=== PATIENT | female | born 1940 | race Caucasian/White ===

== ENCOUNTER 2018-12-02 01:45 | Outpatient (CLI) | payer MEDICARE ==
[2018-12-02 16:12] LABS: #Basophils 0.1 thou/uL (0.0-0.2); #Eosinphils 0.1 thou/uL (0.0-0.7); #Monocytes 0.5 thou/uL (0.11-0.59); #Neutrophils 4.5 thou/uL (1.40-6.50); %Basophils 1.2 % (0.0-1.0); %Eosinophils 1.3 % (0.0-10.0); %Lymphocytes 28.2 % (21.0-51.0); %Monocytes 6.7 % (0.0-10.0); %Neutrophils 62.6 % (42.0-75.0); Hemoglobin 13.3 g/dL (12.0-16.0); Mean Corpuscular HGB CONC 32.8 g/dL (32.0-36.0); Mean Corpuscular Volume 91.6 fL (78.0-98.0); Mean Platelet Volume 8.8 fL (7.4-10.4); Platelet Count 200 thou/uL (130-400); RBC Distribution Width 12.2 % (11.5-14.5); Red Blood Cell (RBC) Count 4.44 mill/uL (4.20-5.40); White Blood Cell (WBC) Count 7.2 thou/uL (4.8-10.8)
[2018-12-02 16:15] LABS: Prothrombin Time 12.9 SEC (12.0-14.7)
[2018-12-02 16:20] LABS: Bacteria/HPF None Seen HPF (None Seen); Hyaline Casts/LPF 0-3 HYALINE CAST LPF (0-3 Hyaline); Pathc Cast-AUWi Flag 0.13 (0-2.49); RBC/HPF 0-3 HPF (0-3); Squamous Epithelial None Seen HPF (0-3); WBC/HPF 0-3 HPF (0-3)
[2018-12-02 16:36] LABS: Anion Gap 12 mmol/L (10-20); BUN (Urea Nitrogen) 16 mg/dL (9.8-20.1); Calc. Creatinine Clearance 0 mL/min (70-130); Calcium 9.8 mg/dL (7.8-10.44); Carbon Dioxide 26 mmol/L (23-31); Chloride 104 mmol/L (98-107); Estimated GFR-MDRD 73; Glucose 132 mg/dL (83-110); Potassium 4.2 mmol/L (3.5-5.1); Sodium 138 mmol/L (136-145)
--- NOTE | 2018-12-03 21:25 | EKG ---
Test Reason : Blood Pressure : / mmHG Vent. Rate : 059 BPM Atrial Rate : 059 BPM P-R Int : 154 ms QRS Dur : 072 ms QT Int : 458 ms P-R-T Axes : 071 054 040 degrees QTc Int : 453 ms Sinus bradycardia with Possible Premature atrial complexes with Abberant conduction Low voltage QRS Nonspecific ST abnormality Abnormal ECG No previous ECGs available Confirmed by Maria Guadalupe WAGNER ([id number]) on 12/03/2018 9:25:14 PM Referred By: BETI Confirmed By:Maria Guadalupe WAGNER
== END 2018-12-02 01:46 | disposition home or self-care (01) ==
LOC: LABBT 01:45
PROVIDERS: ATTEND Orthopaedic Surgery
DX: Z01.818 Encounter for other preprocedural examination (principal); M17.32 Unilateral post-traumatic osteoarthritis, left knee
CPT/HCPCS: 80048; 81015; 85025; 85610; 87081; 93005; 93010

== ENCOUNTER 2018-12-14 05:54 | Inpatient (IN) | payer MEDICARE ==
[2018-12-02 13:26] VITALS: BMI 24.5
[2018-12-14] MEDS ORDERED: Midazolam HCl 2 mg/2 ml Vial ONE (06:07)
[2018-12-14] MEDS ORDERED: Fentanyl 100 MCG/2 ML VIAL ONE ×2 (06:07→08:59)
[2018-12-14] MEDS ORDERED: Tranexamic Acid 1,000 MG/10 ML VIAL ONE (06:28)
[2018-12-14] MEDS ORDERED: Sodium Chloride 0.9% 100 ML ONE (06:28)
[2018-12-14] MEDS ORDERED: traMADol HCl 50 MG TAB PO PRN ×2 (06:36)
[2018-12-14] MEDS ORDERED: Zolpidem Tartrate 5 MG TAB PO PRN ×2 (06:36→06:54)
[2018-12-14] MEDS ORDERED: Promethazine HCl 25 MG/ML VIAL IM PRN ×3 (06:36→08:05)
[2018-12-14] MEDS ORDERED: Ondansetron PF 4 MG/2 ML Vial IVP PRN ×2 (06:36→06:54)
[2018-12-14] MEDS ORDERED: Fentanyl 100 MCG/2 ML VIAL IV PRN (06:37)
[2018-12-14] MEDS ORDERED: Acetaminophen 325 MG TAB PO PRN (06:54)
[2018-12-14] MEDS ORDERED: diphenhydrAMINE 25 MG CAP PO PRN (06:54)
[2018-12-14] MEDS ORDERED: Meloxicam 7.5 MG TAB PO PRN (06:56)
[2018-12-14] MEDS ORDERED: Alendronate Sodium 70 mg Tablet PO SCH (07:00)
[2018-12-14] MEDS ORDERED: Ondansetron HCl/PF 4 MG/2 ML Vial IVP PRN (08:05)
[2018-12-14] MEDS ORDERED: Promethazine HCl 25 MG/ML VIAL SLOW IVP PRN (08:05)
[2018-12-14] MEDS ORDERED: Non-Formulary Item 1 EACH (Liraglutide [Victoza 3-Pak] 1.8 MG) SC SCH (09:00)
--- NOTE | 2018-12-14 09:00 | RAD ---
XR Knee Lt 2 View HISTORY: Total knee replacement COMPARISON: None. FINDINGS: A total knee prosthesis is in good position without evidence of fracture. Vascular calcific ations are noted. IMPRESSION: Satisfactory placement of total knee prosthesis.
--- NOTE | 2018-12-14 10:00 | OP ---
DATE OF PROCEDURE: 12/14/2018 PREOPERATIVE DIAGNOSIS: Degenerative joint disease, left knee. POSTOPERATIVE DIAGNOSIS: Degenerative joint disease, left knee. PROCEDURE PERFORMED: Left total knee arthroplasty using Branch Triathlon 4 femur, 3 tibia, 9 mm, 6 tibial insert, and A29 patella. WIRE STITCHER MACHINE: Liza Monsivais PA-C ESTIMATED BLOOD LOSS: Minimal. SPECIMEN: None. DRAINS: None. COMPLICATIONS: None. TOURNIQUET TIME: 49 minutes. PROCEDURE IN DETAIL: After informed consent was obtained in the preoperative holding area, the patient was taken to the operative suite where general anesthesia was induced. Once adequate level of general anesthesia was obtained, the patient was positioned and a well-padded tourniquet was placed around the left proximal thigh. The left lower extremity was then prepped and draped in the usual sterile fashion. Prior to exsanguination, a time-out was called and all members of the surgical team agreed upon site, surgeon, and patient. The extremity was then exsanguinated and the tourniquet was raised. A midline longitudinal incision was then made directly over the patella extending 2 fingerbreadths above the superior pole of the patella and 2 fingerbreadths inferior to the inferior patellar pole of the patella. Deeper subcutaneous layers were dissected sharply and local bleeding was controlled with Bovie electrocautery. A quad tendon longitudinal split was then made sharply and a median parapatellar arthrotomy was carried out both sharp and with Bovie electrocautery, carried down to 1 fingerbreadth medial to the tibial tubercle. The knee was then placed into flexion and the patella was everted nicely, and a copious fat pad ectomy was performed allowing for greater exposure of the tibia. The computer-assisted distal femoral fiducial was then placed and pinned firmly, and the distal femoral cutting guide was pinned firmly into place. The oscillating saw was then used to remove the appropriate amount of bone. The 4-in-1 cutting block was then placed on the distal femur and the oscillating saw was used to remove the appropriate amount of bone off the anterior, posterior, and chamfer cuts. After completion of bone cuts, the anterior cruciate ligament was resected sharply and the posterior cruciate ligament retractor was placed and the tibia was subluxed for better exposure. Partial meniscectomies were carried out, and the tibial computer-assisted fiducial was pinned, and the cutting guide was placed. Oscillating saw was then used to remove the bone, with Hohmann retractors used to take care and protect the collateral ligaments. After the tibial resection was performed, a laminar registered dental assistant was placed in between the freshened bone cuts. The knee placed at 90 degrees and further bilateral meniscectomies were carried out, and the curved osteotome and curettage were used to remove any excess bone spurs in the posterior compartment. The trial femoral component, tibial baseplate were placed with the appropriate polyethylene trial insert with an appropriate polyethylene spacer and patellar button. The knee was taken through full range of motion with flexion and extension from 0 to 90 degrees and patellar broach squarely in the trochlea without any squinting or subluxation noted. The knee was also stable to varus and valgus stressing at 0, 15, 45, and 90 degrees of flexion. The drawer was negative. All trial components were then removed and the keel punch was used to provide the appropriate defect in the tibia with a mallet. The freshened bone cuts were copiously irrigated with pulsatile lavage of about 1.5 L to remove all excess debris. The freshened bone cuts were then dried with suction and lap sponge. The knee was placed in flexion and retractors were placed to provide access to all bone cuts. Tobramycin-impregnated methyl methacrylate cement was then placed on the freshened bone cuts and implants which were malleted firmly into place. Curettage and [place] elevators were used to remove any excess bone cement. The knee was placed into full extension and the patellar button was placed under compression, and the cement was allowed to cure. Once completed, the components were again taken through full range of motion and copious irrigation of the knee was carried out with another liter of normal saline. All components were inspected fully with full range of motion and varus and valgus stressing. There was no laxity noted and full extension was observed clinically. Primary closure was accomplished with #2 interrupted Vicryl stitch of the arthrotomy defect. This was oversewn with a #2 running Quill barbed stitch. The gravitational platelet system was then injected into the arthrotomy prior to closure. The subcutaneous layer was then closed with a running 0 barbed Monocryl stitch and skin closure accomplished with a running subcuticular 3-0 Monocryl barbed Quill stitch and augmented with cement on the skin. Tourniquet was lowered. Good spontaneous return of distal pulses was noted clinically and a sterile dressing was applied to the incision. The procedure was terminated without any complications. The patient was awakened in the operative suite and the was removed, and the patient was taken to the recovery room in stable condition. Job ID: [id number]
[2018-12-14] MEDS ORDERED: hydrALAZINE 20 MG/ML VIAL SLOW IVP PRN (10:07)
[2018-12-14] MEDS ORDERED: Benzonatate 100 MG CAP PO PRN (10:07)
[2018-12-14] MEDS ORDERED: Bisacodyl 5 MG TAB PO PRN (10:07)
[2018-12-14] MEDS ORDERED: Acetaminophen 500 MG TAB PO PRN (10:07)
[2018-12-14] MEDS ORDERED: Calcium Carbonate 500 MG ChewTAB PO PRN (10:07)
[2018-12-14] MEDS ORDERED: cloNIDine 0.1 MG TAB PO PRN (10:07)
[2018-12-14] MEDS ORDERED: Diabetic Tussin 200 MG/10 ML UDCUP PO PRN (10:07)
[2018-12-14] MEDS ORDERED: Dextrose 5% in Water 1,000 ML IV PRN (10:08)
[2018-12-14] MEDS ORDERED: Dextrose 50% Abboject 50 ML SYRINGE SLOW IVP PRN (10:08)
[2018-12-14] MEDS ORDERED: HumaLOG 300 UNITS/3 ML VIAL SC PRN (10:08)
[2018-12-14] MEDS: CEFAZOLIN 2 GM in Premix Bag 1 BAG IVPB SCH ×2 (10:48→15:50)
[2018-12-14] MEDS: Senokot S 8.6-50 MG TAB PO SCH ×2 (10:49→21:11)
[2018-12-14] MEDS: Multivitamin W/ Minerals 1 TAB PO SCH (10:49)
[2018-12-14] MEDS: Sodium Chloride 0.9% 1,000 ML IV SCH ×2 (10:49→17:53)
[2018-12-14] MEDS: Ferrous Gluconate 324 MG TAB PO SCH ×2 (10:49→21:11)
[2018-12-14] MEDS: Aspirin 81 mg Enteric Coated Tablet PO SCH ×2 (10:49→21:11)
--- NOTE | 2018-12-14 10:51 | PDOC.PN ---
- Subjective Encounter Start Date: 12/14/18 Encounter Start Time: 10:48 Subjective: pt seen & examined.S/P L TKR.feels well.no new complaints -: PCP is Dr. Bautista -: denies any CP/SOB/N/V/abd pain - Objective MAR Reviewed: Yes Vital Signs & Weight: Vital Signs (12 hours) Temp Pulse Resp BP Pulse Ox 12/14/18 10:25 97.3 F L 69 16 136/65 97 Weight Weight 130 lb Additional Labs: Laboratory Tests 12/02/18 12/02/18 14:12 14:12 WBC 7.2 Hgb 13.3 Plt Count 200 Sodium 138 Potassium 4.2 Chloride 104 Carbon Dioxide 26 BUN 16 Creatinine 0.77 Phys Exam - Physical Examination Constitutional: NAD HEENT: PERRLA, moist MMs, sclera anicteric, oral pharynx no lesions Neck: no nodes, no JVD, supple, full ROM Respiratory: no wheezing, no rales, no rhonchi, clear to auscultation bilateral Cardiovascular: RRR, no significant murmur Gastrointestinal: soft, non-tender, no distention, positive bowel sounds Musculoskeletal: no edema, pulses present Neurological: non-focal, normal sensation, moves all 4 limbs Psychiatric: normal affect, A&O x 3 Skin: no rash Dx/Plan (1) DM2 (diabetes mellitus, type 2) Status: Chronic Comment: restart Victoza and Xigduo at home doses. PRN ISS w accuchecks. (2) S/P total knee arthroplasty Code(s): Z96.659 - PRESENCE OF UNSPECIFIED ARTIFICIAL KNEE JOINT Status: Acute Qualifiers: Laterality: left Qualified Code(s): Z96.652 - Presence of left artificial knee joint Comment: oain control and OT,PT per Primary team (3) HLD (hyperlipidemia) Code(s): E78.5 - HYPERLIPIDEMIA, UNSPECIFIED Status: Chronic Comment: restart Atorvastatin - Plan PT/OT, incentive spirometry, out of bed/ambulate, DVT proph w/SCDs ASA BID for DVT prophylaxis -: FeSO4 BID for prevention/Rx of expected postop anemia -: AM labs -: HD stable -: IM team will follow. * . Review of Systems - Review of Systems Constitutional: negative: fever, chills, sweats, weakness, malaise, other ENT: negative: Ear Pain, Ear Discharge, Nose Pain, Nose Discharge, Nose Congestion, Mouth Pain, Mouth Swelling, Throat Pain, Throat Swelling, Other Respiratory: negative: Cough, Dry, Shortness of Breath, Hemoptysis, SOB with Excertion, Pleuritic Pain, Sputum, Wheezing Cardiovascular: negative: chest pain, palpitations, orthopnea, paroxysmal nocturnal dyspnea, edema, light headedness, other Gastrointestinal: negative: Nausea, Vomiting, Abdominal Pain, Diarrhea, Constipation, Melena, Hematochezia, Other Genitourinary: negative: Dysuria, Frequency, Incontinence, Hematuria, Retention , Other Musculoskeletal: negative: Neck Pain, Shoulder Pain, Arm Pain, Back Pain, Hand Pain, Leg Pain, Foot Pain, Other Neurological: negative: Weakness, Numbness, Incoordination, Change in Speech, Confusion, Seizures, Other - Medications/Allergies Allergies/Adverse Reactions: Allergies Allergy/AdvReac Type Severity Reaction Status Date / Time No Known Allergies Allergy Verified 12/02/18 13:25 Medications: Current Medications Acetaminophen (Tylenol) 650 mg PO Q4H PRN PRN Reason: Headache/Fever or Pain Acetaminophen (Tylenol) 1,000 mg PO Q6H PRN PRN Reason: Mild Pain (1-3) Hydrocodone Bitart/Acetaminophen ([place] 10/325) 1 tab PO Q4H PRN PRN Reason: Pain (1-3) Hydrocodone Bitart/Acetaminophen ([place] 10/325) 2 tab PO Q4H PRN PRN Reason: PAIN (4-6) Alendronate Sodium (Fosamax) 70 mg PO Q7D [facility] Last Admin: 12/14/18 10:48 Dose: Not Given Aspirin (Ecotrin) 81 mg PO BID [facility] Last Admin: 12/14/18 10:49 Dose: Not Given Atorvastatin Calcium (Lipitor) 80 mg PO HS [facility] Benzonatate (Tessalon) 100 mg PO Q6H PRN PRN Reason: Cough Bisacodyl (Dulcolax) 10 mg PO DAILYPRN PRN PRN Reason: Constipation Calcium Carbonate (Tums) 1,000 mg PO Q4H PRN PRN Reason: Heartburn or Indigestion Cholecalciferol (Vitamin D3) 0 units PO DAILY [facility] Clonidine (Catapres) 0.1 mg PO Q4H PRN PRN Reason: SBP >160 ____ Dextrose/Water (Dextrose 50%) 25 gm SLOW IVP PRN PRN PRN Reason: Hypoglycemia Diphenhydramine HCl (Benadryl) 25 mg PO Q6H PRN PRN Reason: Itching Fentanyl (Sublimaze) 50 mcg IV Q1H PRN PRN Reason: BREAKTHROUGH Fentanyl (Pacu-Sublimaze) 50 mcg SLOW IVP Q10MIN PRN PRN Reason: Moderate to Severe Pain (6-10) Stop: 12/14/18 11:05 Ferrous Gluconate (Fergon) 324 mg PO BID [facility] Last Admin: 12/14/18 10:49 Dose: Not Given Glucagon (Glucagon) 1 mg IM PRN PRN PRN Reason: Hypoglycemia Guaifenesin (Robitussin Sf) 200 mg PO Q4H PRN PRN Reason: Cough Hydralazine HCl (Apresoline) 10 mg SLOW IVP Q4H PRN PRN Reason: SBP > 180 and HR < 70 Ropivacaine 250 ml/ Device 250 mls @ 0 mls/hr NERVE BLCK INF [facility] Cefazolin Sodium/Dextrose 2 gm (/ Device) 50 mls @ 100 mls/hr IVPB Q8H [facility] Stop: 12/14/18 15:29 Last Admin: 12/14/18 10:48 Dose: Not Given Sodium Chloride (Normal Saline 0.9%) 1,000 mls @ 100 mls/hr IV .Q10H [facility] Last Admin: 12/14/18 10:49 Dose: Not Given Dextrose/Water (D5w) 1,000 mls @ 0 mls/hr IV .Q0M PRN PRN Reason: Hypoglycemia Insulin Human Lispro (Humalog) 0 units SC .MODERATE SLIDING SC PRN PRN Reason: Moderate Correctional Scale Insulin Human Lispro (Humalog) 0 units SC .BEDTIME SLIDING SC PRN PRN Reason: Bedtime Correctional Scale Iron/Minerals/Multivitamins (Theragran M) 1 tab PO DAILY [facility] Last Admin: 12/14/18 10:49 Dose: Not Given Ketorolac Tromethamine (Toradol) 30 mg IVP Q6HR [facility] Stop: 12/16/18 06:01 Meloxicam (Mobic) mg PO DAILY PRN PRN Reason: Pain Non-Formulary Medication (Biotin [Biotin]) 5,000 mcg PO DAILY [facility] Non-Formulary Medication (Dapagliflozin/Metformin Hcl [Xigduo Xr 5 Mg-1,000 Mg Tablet]) 1 tab PO DAILY [facility] Non-Formulary Medication (Liraglutide [Victoza 3-Gume]) 1.8 mg SC DAILY [facility] Non-Formulary Medication (Metformin Hcl [Metformin Hcl]) 1 tab PO [facility] Ondansetron HCl (Zofran) 4 mg IVP Q6H PRN PRN Reason: Nausea/Vomiting Ondansetron HCl (Zofran) 4 mg IVP Q6H PRN PRN Reason: Nausea/Vomiting Ondansetron HCl (Pacu-Zofran) 4 mg IVP ONE PRN PRN Reason: Nausea/Vomiting Stop: 12/14/18 11:05 Promethazine HCl (Phenergan) 12.5 mg IM Q4H PRN PRN Reason: Nausea Promethazine HCl (Phenergan) 12.5 mg IM Q4H PRN PRN Reason: Nausea/Vomiting Promethazine HCl (Pacu-Phenergan) 6.25 mg SLOW IVP ONE PRN PRN Reason: Nausea/Vomiting Stop: 12/14/18 11:05 Promethazine HCl (Pacu-Phenergan) 6.25 mg IM ONE PRN PRN Reason: Nausea/Vomiting Stop: 12/14/18 11:05 Senna/Docusate Sodium (Senokot S) 2 tab PO BID [facility] Last Admin: 12/14/18 10:49 Dose: Not Given Sodium Chloride (Flush - Normal Saline) 10 ml IVF PRN PRN PRN Reason: Saline Flush Tramadol HCl (Ultram) 50 mg PO Q6H PRN PRN Reason: Mild Pain (1-3) Tramadol HCl (Ultram) 100 mg PO Q6H PRN PRN Reason: Moderate Pain 4-6 Zolpidem Tartrate (Ambien) 5 mg PO HSPRN PRN PRN Reason: Insomnia Zolpidem Tartrate (Ambien) 5 mg PO HSPRN PRN PRN Reason: Insomnia
[2018-12-14] MEDS ORDERED: Ropivacaine 0.2% HCl/PF (40 MG/20 ML VIAL) ONE (11:23)
[2018-12-14] MEDS ORDERED: Ropivacaine 0.5% HCl/PF (150 MG/30 ML VIAL) ONE (11:23)
[2018-12-14] MEDS ORDERED: Ondansetron PF 4 MG/2 ML Vial ONE (12:19)
[2018-12-14] MEDS ORDERED: PROPOFOL 200 MG/20 ML VIAL ONE (12:19)
[2018-12-14] MEDS ORDERED: Ketorolac Tromethamine 30 MG/ML VIAL ONE (12:19)
[2018-12-14] MEDS ORDERED: Lidocaine 1% PF 5 ML VIAL ONE (12:19)
[2018-12-14] MEDS: Ketorolac Tromethamine 30 MG/ML VIAL IVP SCH ×2 (12:44→18:08)
[2018-12-14] MEDS: HumaLOG 300 UNITS/3 ML VIAL SC PRN (15:57)
[2018-12-14] MEDS: Atorvastatin Calcium 40 MG TAB PO SCH (21:14)
[2018-12-15] MEDS: Ketorolac Tromethamine 30 MG/ML VIAL IVP SCH ×5 (00:15→23:32)
[2018-12-15] MEDS: Sodium Chloride 0.9% 1,000 ML IV SCH ×3 (02:03→20:59)
[2018-12-15 06:24] LABS: Hemoglobin 10.6 g/dL (12.0-16.0); Mean Corpuscular HGB CONC 33.2 g/dL (32.0-36.0); Mean Corpuscular Hemoglobin 30.1 pg (27.0-31.0); Mean Corpuscular Volume 90.7 fL (78.0-98.0); Mean Platelet Volume 8.4 fL (7.4-10.4); Platelet Count 152 thou/uL (130-400); RBC Distribution Width 11.9 % (11.5-14.5); Red Blood Cell (RBC) Count 3.52 mill/uL (4.20-5.40); White Blood Cell (WBC) Count 7.1 thou/uL (4.8-10.8)
[2018-12-15 06:40] LABS: Anion Gap 11 mmol/L (10-20); BUN (Urea Nitrogen) 18 mg/dL (9.8-20.1); Calc. Creatinine Clearance 64 mL/min (70-130); Calcium 8.1 mg/dL (7.8-10.44); Carbon Dioxide 24 mmol/L (23-31); Chloride 105 mmol/L (98-107); Estimated GFR-MDRD 81; Glucose 143 mg/dL (83-110); Sodium 136 mmol/L (136-145)
[2018-12-15] MEDS: Ropivacaine HCl/PF 250 ML in Premix Bag 1 BAG NERVE BLCK SCH (09:27)
[2018-12-15] MEDS: Multivitamin W/ Minerals 1 TAB PO SCH (09:38)
[2018-12-15] MEDS: Ferrous Gluconate 324 MG TAB PO SCH ×2 (09:38→20:08)
[2018-12-15] MEDS: Aspirin 81 mg Enteric Coated Tablet PO SCH ×2 (09:38→20:08)
[2018-12-15] MEDS: Senokot S 8.6-50 MG TAB PO SCH ×2 (09:39→20:08)
[2018-12-15] MEDS: HumaLOG 300 UNITS/3 ML VIAL SC PRN (15:26)
[2018-12-15] MEDS: HYDROcodone/Acetaminophen 10/325 mg Tablet PO PRN ×2 (15:31→20:08)
[2018-12-15] MEDS: Non-Formulary Item 1 EACH (Biotin [Biotin] 5,000 MCG) PO SCH ×2 (15:36→15:37)
[2018-12-15] MEDS: metFORMIN 500 MG TAB PO SCH (20:08)
[2018-12-15] MEDS: Atorvastatin Calcium 40 MG TAB PO SCH (20:08)
--- NOTE | 2018-12-15 22:46 | PDOC.PN ---
- Subjective Encounter Start Date: 12/15/18 Encounter Start Time: 16:45 Subjective: pt up in chair no complains - Objective Vital Signs & Weight: Vital Signs (12 hours) Temp Pulse Resp BP Pulse Ox 12/15/18 20:00 95 12/15/18 19:46 98.4 F 77 18 114/68 95 12/15/18 15:35 99.1 F 78 16 147/77 H 93 L Weight Admit Weight 130 lb Weight 130 lb I&O: 12/14/18 12/15/18 12/16/18 06:59 06:59 06:59 Intake Total 2202 Output Total 2900 Balance -698 Result Diagrams: 12/15/18 05:50 12/15/18 05:50 Additional Labs: Accuchecks 12/15/18 12/15/18 12/15/18 20:57 15:37 12:43 POC Glucose 216 H 267 H 255 H 12/15/18 05:50 POC Glucose 138 H Phys Exam - Physical Examination Neck: no nodes, no JVD, supple, full ROM Respiratory: no wheezing, no rales, no rhonchi, wheezing present, clear to auscultation bilateral Cardiovascular: RRR, no significant murmur, no rub, gallop, irregular Gastrointestinal: soft, non-tender, no distention, positive bowel sounds Dx/Plan (1) DM2 (diabetes mellitus, type 2) Status: Chronic Comment: restart Victoza and Xigduo at home doses. PRN ISS w accuchecks. (2) S/P total knee arthroplasty Code(s): Z96.659 - PRESENCE OF UNSPECIFIED ARTIFICIAL KNEE JOINT Status: Acute Qualifiers: Laterality: left Qualified Code(s): Z96.652 - Presence of left artificial knee joint Comment: oain control and OT,PT per Primary team (3) HLD (hyperlipidemia) Code(s): E78.5 - HYPERLIPIDEMIA, UNSPECIFIED Status: Chronic Comment: restart Atorvastatin - Plan pt's blood sugars are >200 continue home medication -: and ac/hs humalog, vitals stable -: dvt ppx asa bid * . Review of Systems - Review of Systems Respiratory: negative: Cough, Dry, Shortness of Breath, Hemoptysis, SOB with Excertion, Pleuritic Pain, Sputum, Wheezing Cardiovascular: negative: chest pain, palpitations, orthopnea, paroxysmal nocturnal dyspnea, edema, light headedness, other - Medications/Allergies Allergies/Adverse Reactions: Allergies Allergy/AdvReac Type Severity Reaction Status Date / Time No Known Allergies Allergy Verified 12/02/18 13:25 Medications: Current Medications Acetaminophen (Tylenol) 650 mg PO Q4H PRN PRN Reason: Headache/Fever or Pain Acetaminophen (Tylenol) 1,000 mg PO Q6H PRN PRN Reason: Mild Pain (1-3) Hydrocodone Bitart/Acetaminophen ([place] 10/325) 1 tab PO Q4H PRN PRN Reason: Pain (1-3) Hydrocodone Bitart/Acetaminophen ([place] 10/325) 2 tab PO Q4H PRN PRN Reason: PAIN (4-6) Last Admin: 12/15/18 20:08 Dose: 2 tab Alendronate Sodium (Fosamax) 70 mg PO Q7D [facility] Last Admin: 12/14/18 10:48 Dose: Not Given Aspirin (Ecotrin) 81 mg PO BID [facility] Last Admin: 12/15/18 20:08 Dose: 81 mg Atorvastatin Calcium (Lipitor) 80 mg PO HS [facility] Last Admin: 12/15/18 20:08 Dose: 80 mg Benzonatate (Tessalon) 100 mg PO Q6H PRN PRN Reason: Cough Bisacodyl (Dulcolax) 10 mg PO DAILYPRN PRN PRN Reason: Constipation Calcium Carbonate (Tums) 1,000 mg PO Q4H PRN PRN Reason: Heartburn or Indigestion Cholecalciferol (Vitamin D3) 1,000 units PO DAILY [facility] Last Admin: 12/15/18 09:38 Dose: 1,000 units Clonidine (Catapres) 0.1 mg PO Q4H PRN PRN Reason: SBP >160 ____ Dextrose/Water (Dextrose 50%) 25 gm SLOW IVP PRN PRN PRN Reason: Hypoglycemia Diphenhydramine HCl (Benadryl) 25 mg PO Q6H PRN PRN Reason: Itching Fentanyl (Sublimaze) 50 mcg IV Q1H PRN PRN Reason: BREAKTHROUGH Ferrous Gluconate (Fergon) 324 mg PO BID [facility] Last Admin: 12/15/18 20:08 Dose: 324 mg Glucagon (Glucagon) 1 mg IM PRN PRN PRN Reason: Hypoglycemia Guaifenesin (Robitussin Sf) 200 mg PO Q4H PRN PRN Reason: Cough Hydralazine HCl (Apresoline) 10 mg SLOW IVP Q4H PRN PRN Reason: SBP > 180 and HR < 70 Ropivacaine 250 ml/ Device 250 mls @ 0 mls/hr NERVE BLCK INF [facility] Last Admin: 12/15/18 09:27 Dose: 250 mls Sodium Chloride (Normal Saline 0.9%) 1,000 mls @ 100 mls/hr IV .Q10H [facility] Last Admin: 12/15/18 20:59 Dose: Not Given Dextrose/Water (D5w) 1,000 mls @ 0 mls/hr IV .Q0M PRN PRN Reason: Hypoglycemia Insulin Human Lispro (Humalog) 0 units SC .MODERATE SLIDING SC PRN PRN Reason: Moderate Correctional Scale Last Admin: 12/15/18 15:26 Dose: 6 unit Insulin Human Lispro (Humalog) 0 units SC .BEDTIME SLIDING SC PRN PRN Reason: Bedtime Correctional Scale Iron/Minerals/Multivitamins (Theragran M) 1 tab PO DAILY [facility] Last Admin: 12/15/18 09:38 Dose: 1 tab Ketorolac Tromethamine (Toradol) 30 mg IVP Q6HR [facility] Stop: 12/16/18 06:01 Last Admin: 12/15/18 18:55 Dose: Not Given Meloxicam (Mobic) 7.5 mg PO DAILY PRN PRN Reason: Pain Metformin HCl (Glucophage) 1,000 mg PO HS [facility] Last Admin: 12/15/18 20:08 Dose: 1,000 mg Ondansetron HCl (Zofran) 4 mg IVP Q6H PRN PRN Reason: Nausea/Vomiting Xigduo Xr 5 Mg-1,000 (Mg Tablet) 0 each PO DAILY [facility] Patient Own Medication (Patient's Home Medication) 1.8 each SC DAILY [facility] Promethazine HCl (Phenergan) 12.5 mg IM Q4H PRN PRN Reason: Nausea/Vomiting Senna/Docusate Sodium (Senokot S) 2 tab PO BID [facility] Last Admin: 12/15/18 20:08 Dose: 2 tab Sodium Chloride (Flush - Normal Saline) 10 ml IVF PRN PRN PRN Reason: Saline Flush Last Admin: 12/15/18 06:28 Dose: 10 ml Tramadol HCl (Ultram) 50 mg PO Q6H PRN PRN Reason: Mild Pain (1-3) Tramadol HCl (Ultram) 100 mg PO Q6H PRN PRN Reason: Moderate Pain 4-6 Zolpidem Tartrate (Ambien) 5 mg PO HSPRN PRN PRN Reason: Insomnia
[2018-12-16] MEDS: HYDROcodone/Acetaminophen 10/325 mg Tablet PO PRN ×2 (04:16→21:13)
[2018-12-16] MEDS: Ketorolac Tromethamine 30 MG/ML VIAL IVP SCH (04:40)
[2018-12-16 05:03] LABS: Hemoglobin 10.3 g/dL (12.0-16.0); Mean Corpuscular HGB CONC 33.3 g/dL (32.0-36.0); Mean Corpuscular Hemoglobin 30.4 pg (27.0-31.0); Mean Corpuscular Volume 91.4 fL (78.0-98.0); Platelet Count 144 thou/uL (130-400); Red Blood Cell (RBC) Count 3.37 mill/uL (4.20-5.40); White Blood Cell (WBC) Count 7.4 thou/uL (4.8-10.8)
[2018-12-16] MEDS: Senokot S 8.6-50 MG TAB PO SCH ×2 (09:17→21:12)
[2018-12-16] MEDS: Multivitamin W/ Minerals 1 TAB PO SCH (09:17)
[2018-12-16] MEDS: Aspirin 81 mg Enteric Coated Tablet PO SCH ×2 (09:17→21:13)
[2018-12-16] MEDS: Ferrous Gluconate 324 MG TAB PO SCH ×2 (09:17→21:13)
[2018-12-16] MEDS: XIGDUO PO SCH (09:20)
[2018-12-16] MEDS: PATIENT'S HOME MEDICATION SC SCH (09:21)
[2018-12-16] MEDS: Sodium Chloride 0.9% 1,000 ML IV SCH ×2 (09:27→22:05)
[2018-12-16] MEDS: HumaLOG 300 UNITS/3 ML VIAL SC PRN (12:36)
--- NOTE | 2018-12-16 12:43 | PDOC.PN ---
- Subjective Encounter Start Date: 12/16/18 Encounter Start Time: 09:00 -: old records requested/rev Patient seen and examined. No new complaints. No overnight events - Objective Resuscitation Status - Order Detail: 12/16/18 08:15 Resuscitation Status Routine Resuscitation Status: FULL: Full Resuscitation MAR Reviewed: Yes Vital Signs & Weight: Vital Signs (12 hours) Temp Pulse Resp BP Pulse Ox 12/16/18 12:10 98.3 F 74 20 161/79 H 96 12/16/18 04:36 98.3 F 77 18 129/73 94 L Weight Admit Weight 130 lb Weight 130 lb I&O: 12/15/18 12/16/18 12/17/18 06:59 06:59 06:59 Intake Total 2202 610 Output Total 2900 Balance -698 610 Result Diagrams: 12/16/18 04:32 12/15/18 05:50 Additional Labs: Accuchecks 12/16/18 12/16/18 12/15/18 11:59 06:25 20:57 POC Glucose 176 H 150 H 216 H 12/15/18 12/15/18 15:37 12:43 POC Glucose 267 H 255 H Phys Exam - Physical Examination Constitutional: NAD HEENT: PERRLA, moist MMs, sclera anicteric Neck: no JVD, supple Respiratory: no wheezing, no rales, no rhonchi Cardiovascular: RRR, no significant murmur, no rub Gastrointestinal: soft, non-tender, no distention, positive bowel sounds Musculoskeletal: no edema, pulses present Neurological: non-focal, normal sensation, moves all 4 limbs Lymphatic: no nodes Psychiatric: normal affect, A&O x 3 Skin: no rash, normal turgor Dx/Plan (1) Status post total left knee replacement Code(s): Z96.652 - PRESENCE OF LEFT ARTIFICIAL KNEE JOINT Status: Acute (2) Anemia, normocytic normochromic Code(s): D64.9 - ANEMIA, UNSPECIFIED Status: Chronic (3) DM2 (diabetes mellitus, type 2) Status: Chronic Comment: restart Victoza and Xigduo at home doses. PRN ISS w accuchecks. (4) HLD (hyperlipidemia) Code(s): E78.5 - HYPERLIPIDEMIA, UNSPECIFIED Status: Chronic Comment: restart Atorvastatin (5) Osteoarthritis Code(s): M19.90 - UNSPECIFIED OSTEOARTHRITIS, UNSPECIFIED SITE Status: Chronic (6) Osteoporosis Code(s): M81.0 - AGE-RELATED OSTEOPOROSIS W/O CURRENT PATHOLOGICAL FRACTURE Status: Chronic - Plan cont current plan of care, PT/OT * medication reviewed as below * symptomatic treatment * stable medically * doing well with PT * pain controlled * plan for discharge later today * will sign off. Review of Systems - Review of Systems ENT: negative: Ear Pain, Ear Discharge, Nose Pain, Nose Discharge, Nose Congestion, Mouth Pain, Mouth Swelling, Throat Pain, Throat Swelling, Other Respiratory: negative: Cough, Dry, Shortness of Breath, Hemoptysis, SOB with Excertion, Pleuritic Pain, Sputum, Wheezing Cardiovascular: negative: chest pain, palpitations, orthopnea, paroxysmal nocturnal dyspnea, edema, light headedness, other Gastrointestinal: negative: Nausea, Vomiting, Abdominal Pain, Diarrhea, Constipation, Melena, Hematochezia, Other Genitourinary: negative: Dysuria, Frequency, Incontinence, Hematuria, Retention , Other Musculoskeletal: negative: Neck Pain, Shoulder Pain, Arm Pain, Back Pain, Hand Pain, Leg Pain, Foot Pain, Other Skin: negative: Rash, Lesions, [place], Bruising, Other - Medications/Allergies Allergies/Adverse Reactions: Allergies Allergy/AdvReac Type Severity Reaction Status Date / Time No Known Allergies Allergy Verified 12/02/18 13:25 Medications: Current Medications Acetaminophen (Tylenol) 650 mg PO Q4H PRN PRN Reason: Headache/Fever or Pain Acetaminophen (Tylenol) 1,000 mg PO Q6H PRN PRN Reason: Mild Pain (1-3) Hydrocodone Bitart/Acetaminophen ([place] 10/325) 1 tab PO Q4H PRN PRN Reason: Pain (1-3) Hydrocodone Bitart/Acetaminophen ([place] 10/325) 2 tab PO Q4H PRN PRN Reason: PAIN (4-6) Last Admin: 12/16/18 04:16 Dose: 2 tab Alendronate Sodium (Fosamax) 70 mg PO Q7D REPLACED BY [facility] Last Admin: 12/14/18 10:48 Dose: Not Given Aspirin (Ecotrin) 81 mg PO BID REPLACED BY [facility] Last Admin: 12/16/18 09:17 Dose: 81 mg Atorvastatin Calcium (Lipitor) 80 mg PO HS REPLACED BY [facility] Last Admin: 12/15/18 20:08 Dose: 80 mg Benzonatate (Tessalon) 100 mg PO Q6H PRN PRN Reason: Cough Bisacodyl (Dulcolax) 10 mg PO DAILYPRN PRN PRN Reason: Constipation Calcium Carbonate (Tums) 1,000 mg PO Q4H PRN PRN Reason: Heartburn or Indigestion Cholecalciferol (Vitamin D3) 1,000 units PO DAILY REPLACED BY [facility] Last Admin: 12/16/18 09:17 Dose: 1,000 units Clonidine (Catapres) 0.1 mg PO Q4H PRN PRN Reason: SBP >160 ____ Dextrose/Water (Dextrose 50%) 25 gm SLOW IVP PRN PRN PRN Reason: Hypoglycemia Diphenhydramine HCl (Benadryl) 25 mg PO Q6H PRN PRN Reason: Itching Fentanyl (Sublimaze) 50 mcg IV Q1H PRN PRN Reason: BREAKTHROUGH Ferrous Gluconate (Fergon) 324 mg PO BID REPLACED BY [facility] Last Admin: 12/16/18 09:17 Dose: 324 mg Glucagon (Glucagon) 1 mg IM PRN PRN PRN Reason: Hypoglycemia Guaifenesin (Robitussin Sf) 200 mg PO Q4H PRN PRN Reason: Cough Hydralazine HCl (Apresoline) 10 mg SLOW IVP Q4H PRN PRN Reason: SBP > 180 and HR < 70 Ropivacaine 250 ml/ Device 250 mls @ 0 mls/hr NERVE BLCK INF REPLACED BY [facility] Last Admin: 12/15/18 09:27 Dose: 250 mls Sodium Chloride (Normal Saline 0.9%) 1,000 mls @ 100 mls/hr IV .Q10H REPLACED BY [facility] Last Admin: 12/16/18 09:27 Dose: Not Given Dextrose/Water (D5w) 1,000 mls @ 0 mls/hr IV .Q0M PRN PRN Reason: Hypoglycemia Insulin Human Lispro (Humalog) 0 units SC .MODERATE SLIDING SC PRN PRN Reason: Moderate Correctional Scale Last Admin: 12/16/18 12:36 Dose: 2 unit Insulin Human Lispro (Humalog) 0 units SC .BEDTIME SLIDING SC PRN PRN Reason: Bedtime Correctional Scale Iron/Minerals/Multivitamins (Theragran M) 1 tab PO DAILY REPLACED BY [facility] Last Admin: 12/16/18 09:17 Dose: 1 tab Meloxicam (Mobic) 7.5 mg PO DAILY PRN PRN Reason: Pain Metformin HCl (Glucophage) 1,000 mg PO HS REPLACED BY [facility] Last Admin: 12/15/18 20:08 Dose: 1,000 mg Ondansetron HCl (Zofran) 4 mg IVP Q6H PRN PRN Reason: Nausea/Vomiting Xigduo Xr 5 Mg-1,000 (Mg Tablet) 0 each PO DAILY REPLACED BY [facility] Last Admin: 12/16/18 09:20 Dose: 1 each Patient Own Medication (Patient's Home Medication) 1.8 each SC DAILY REPLACED BY [facility] Last Admin: 12/16/18 09:21 Dose: 1.8 each Promethazine HCl (Phenergan) 12.5 mg IM Q4H PRN PRN Reason: Nausea/Vomiting Senna/Docusate Sodium (Senokot S) 2 tab PO BID REPLACED BY [facility] Last Admin: 12/16/18 09:17 Dose: 2 tab Sodium Chloride (Flush - Normal Saline) 10 ml IVF PRN PRN PRN Reason: Saline Flush Last Admin: 12/15/18 06:28 Dose: 10 ml Tramadol HCl (Ultram) 50 mg PO Q6H PRN PRN Reason: Mild Pain (1-3) Tramadol HCl (Ultram) 100 mg PO Q6H PRN PRN Reason: Moderate Pain 4-6 Zolpidem Tartrate (Ambien) 5 mg PO HSPRN PRN PRN Reason: Insomnia
--- NOTE | 2018-12-16 14:22 | DIS ---
DATE OF ADMISSION: 12/14/2018 DATE OF DISCHARGE: 12/16/2018 PRIMARY CARE PHYSICIAN: Dr. Candelario Peñaloza. DISCHARGE DISPOSITION: Home. PRIMARY DISCHARGE DIAGNOSIS: Left total knee replacement. SECONDARY DISCHARGE DIAGNOSES: Normocytic normochromic anemia, diabetes type 2, dyslipidemia, osteoarthritis, osteoporosis. PRIMARY PROCEDURE/OPERATION: Left total knee replacement. RADIOLOGICAL INVESTIGATION: Knee x-ray. SIGNIFICANT LABORATORY DATA: Hemoglobin 10.3, creatinine 0.70, and electrolytes normal. DISCHARGE MEDICATIONS: 1. Fosamax 70 mg p.o. every week. 2. Lipitor 80 mg p.o. at bedtime. 3. Biotin 5000 mcg p.o. daily. 4. Vitamin D3 1000 units p.o. daily. 5. Dapagliflozin with metformin 1 tablet p.o. daily. 6. Victoza 1.8 mg subcu daily. 7. Mobic 7.5 mg p.o. daily p.r.n. 8. Metformin 1000 mg p.o. at bedtime. 9. Aspirin 81 mg p.o. b.i.d. for DVT prophylaxis as per protocol. 10. Pain medication, we will defer to primary team. CONTRAINDICATION: None. CODE STATUS: Full code. INPATIENT GUEST ROOM ATTENDANT: Dr. Wang was primary. Trace Team was consulted for medical comanagement. TEST RESULT PENDING ON DISCHARGE: None. ALLERGIES: NO KNOWN DRUG ALLERGIES. DISCHARGE PLAN: Posthospital, the patient will follow up with Dr. Wang on January 05, 2019, at 1 p.m. The patient will make appointment with primary care physician in 1 week. HOSPITAL COURSE: A 78-year-old female, who was electively admitted by Dr. Wang on December 14, 2018. The patient underwent left total knee replacement. Post operatively at [facility] [place], Trace Team was consulted for medical comanagement. The patient's medical problems remained stable. The patient was doing very well postoperatively. She did not have any complication while in hospital. We resumed all her home medication while in hospital as well as on discharge. The patient is planned for discharge by primary team. The patient had no block while in the hospital. She was given aspirin for DVT prophylaxis as per protocol. I have seen and examined the patient at bedside today. Please see my progress note from today for further detail. Job ID: [id number]
[2018-12-16] MEDS: Atorvastatin Calcium 40 MG TAB PO SCH (21:12)
[2018-12-16] MEDS: metFORMIN 500 MG TAB PO SCH (21:13)
[2018-12-17 03:18] VITALS: BP 148/72; TEMP 97.7
[2018-12-17] MEDS: Sodium Chloride 0.9% 1,000 ML IV SCH (04:08)
[2018-12-17] MEDS: Ropivacaine HCl/PF 250 ML in Premix Bag 1 BAG NERVE BLCK SCH (05:59)
[2018-12-17] MEDS: Multivitamin W/ Minerals 1 TAB PO SCH (08:37)
[2018-12-17] MEDS: Aspirin 81 mg Enteric Coated Tablet PO SCH (08:37)
[2018-12-17] MEDS: Senokot S 8.6-50 MG TAB PO SCH (08:37)
[2018-12-17] MEDS: Ferrous Gluconate 324 MG TAB PO SCH (08:38)
[2018-12-17] MEDS: XIGDUO PO SCH (08:38)
[2018-12-17] MEDS: PATIENT'S HOME MEDICATION SC SCH (08:39)
--- NOTE | 2018-12-17 11:36 | PDOC.PN ---
- Subjective Encounter Start Date: 12/17/18 Encounter Start Time: 09:30 Patient seen and examined. No new complaints. No overnight events - Objective Resuscitation Status - Order Detail: 12/16/18 08:15 Resuscitation Status Routine Resuscitation Status: FULL: Full Resuscitation MAR Reviewed: Yes Vital Signs & Weight: Vital Signs (12 hours) Temp Pulse Resp BP Pulse Ox 12/17/18 03:17 97.7 F 74 20 148/72 H 96 Weight Admit Weight 130 lb Weight 130 lb I&O: 12/16/18 12/17/18 12/18/18 06:59 06:59 06:59 Intake Total 610 700 Balance 610 700 Result Diagrams: 12/16/18 04:32 12/15/18 05:50 Additional Labs: Accuchecks 12/17/18 12/16/18 12/16/18 06:13 21:11 11:59 POC Glucose 101 177 H 176 H Phys Exam - Physical Examination Constitutional: NAD HEENT: PERRLA, moist MMs, sclera anicteric Neck: no JVD, supple Respiratory: no wheezing, no rales, no rhonchi Cardiovascular: RRR, no significant murmur, no rub Gastrointestinal: soft, non-tender, no distention, positive bowel sounds Musculoskeletal: no edema, pulses present Neurological: non-focal, normal sensation, moves all 4 limbs Lymphatic: no nodes Psychiatric: normal affect, A&O x 3 Skin: no rash, normal turgor Dx/Plan (1) Status post total left knee replacement Code(s): Z96.652 - PRESENCE OF LEFT ARTIFICIAL KNEE JOINT Status: Acute (2) Anemia, normocytic normochromic Code(s): D64.9 - ANEMIA, UNSPECIFIED Status: Chronic (3) DM2 (diabetes mellitus, type 2) Status: Chronic Comment: restart Victoza and Xigduo at home doses. PRN ISS w accuchecks. (4) HLD (hyperlipidemia) Code(s): E78.5 - HYPERLIPIDEMIA, UNSPECIFIED Status: Chronic Comment: restart Atorvastatin (5) Osteoarthritis Code(s): M19.90 - UNSPECIFIED OSTEOARTHRITIS, UNSPECIFIED SITE Status: Chronic (6) Osteoporosis Code(s): M81.0 - AGE-RELATED OSTEOPOROSIS W/O CURRENT PATHOLOGICAL FRACTURE Status: Chronic - Plan cont current plan of care, PT/OT, social insurance analyst * medication reviewed as below * symptomatic treatment * today plan for DC to swing bed * see my discharge summery from yesterday. Review of Systems - Review of Systems ENT: negative: Ear Pain, Ear Discharge, Nose Pain, Nose Discharge, Nose Congestion, Mouth Pain, Mouth Swelling, Throat Pain, Throat Swelling, Other Respiratory: negative: Cough, Dry, Shortness of Breath, Hemoptysis, SOB with Excertion, Pleuritic Pain, Sputum, Wheezing Cardiovascular: negative: chest pain, palpitations, orthopnea, paroxysmal nocturnal dyspnea, edema, light headedness, other Gastrointestinal: negative: Nausea, Vomiting, Abdominal Pain, Diarrhea, Constipation, Melena, Hematochezia, Other Genitourinary: negative: Dysuria, Frequency, Incontinence, Hematuria, Retention , Other Musculoskeletal: negative: Neck Pain, Shoulder Pain, Arm Pain, Back Pain, Hand Pain, Leg Pain, Foot Pain, Other - Medications/Allergies Allergies/Adverse Reactions: Allergies Allergy/AdvReac Type Severity Reaction Status Date / Time No Known Allergies Allergy Verified 12/02/18 13:25 Medications: Current Medications Acetaminophen (Tylenol) 650 mg PO Q4H PRN PRN Reason: Headache/Fever or Pain Acetaminophen (Tylenol) 1,000 mg PO Q6H PRN PRN Reason: Mild Pain (1-3) Hydrocodone Bitart/Acetaminophen ([place] 10/325) 1 tab PO Q4H PRN PRN Reason: Pain (1-3) Last Admin: 12/16/18 21:13 Dose: 1 tab Hydrocodone Bitart/Acetaminophen ([place] 10/325) 2 tab PO Q4H PRN PRN Reason: PAIN (4-6) Last Admin: 12/16/18 04:16 Dose: 2 tab Alendronate Sodium (Fosamax) 70 mg PO Q7D [facility] Last Admin: 12/14/18 10:48 Dose: Not Given Aspirin (Ecotrin) 81 mg PO BID [facility] Last Admin: 12/17/18 08:37 Dose: 81 mg Atorvastatin Calcium (Lipitor) 80 mg PO HS [facility] Last Admin: 12/16/18 21:12 Dose: 80 mg Benzonatate (Tessalon) 100 mg PO Q6H PRN PRN Reason: Cough Bisacodyl (Dulcolax) 10 mg PO DAILYPRN PRN PRN Reason: Constipation Calcium Carbonate (Tums) 1,000 mg PO Q4H PRN PRN Reason: Heartburn or Indigestion Cholecalciferol (Vitamin D3) 1,000 units PO DAILY [facility] Last Admin: 12/17/18 08:37 Dose: 1,000 units Clonidine (Catapres) 0.1 mg PO Q4H PRN PRN Reason: SBP >160 ____ Dextrose/Water (Dextrose 50%) 25 gm SLOW IVP PRN PRN PRN Reason: Hypoglycemia Diphenhydramine HCl (Benadryl) 25 mg PO Q6H PRN PRN Reason: Itching Fentanyl (Sublimaze) 50 mcg IV Q1H PRN PRN Reason: BREAKTHROUGH Ferrous Gluconate (Fergon) 324 mg PO BID [facility] Last Admin: 12/17/18 08:38 Dose: 324 mg Glucagon (Glucagon) 1 mg IM PRN PRN PRN Reason: Hypoglycemia Guaifenesin (Robitussin Sf) 200 mg PO Q4H PRN PRN Reason: Cough Hydralazine HCl (Apresoline) 10 mg SLOW IVP Q4H PRN PRN Reason: SBP > 180 and HR < 70 Ropivacaine 250 ml/ Device 250 mls @ 0 mls/hr NERVE BLCK INF [facility] Last Admin: 12/17/18 05:59 Dose: 250 mls Sodium Chloride (Normal Saline 0.9%) 1,000 mls @ 100 mls/hr IV .Q10H [facility] Last Admin: 12/17/18 04:08 Dose: Not Given Dextrose/Water (D5w) 1,000 mls @ 0 mls/hr IV .Q0M PRN PRN Reason: Hypoglycemia Insulin Human Lispro (Humalog) 0 units SC .MODERATE SLIDING SC PRN PRN Reason: Moderate Correctional Scale Last Admin: 12/16/18 12:36 Dose: 2 unit Insulin Human Lispro (Humalog) 0 units SC .BEDTIME SLIDING SC PRN PRN Reason: Bedtime Correctional Scale Iron/Minerals/Multivitamins (Theragran M) 1 tab PO DAILY [facility] Last Admin: 12/17/18 08:37 Dose: 1 tab Meloxicam (Mobic) 7.5 mg PO DAILY PRN PRN Reason: Pain Metformin HCl (Glucophage) 1,000 mg PO HS [facility] Last Admin: 12/16/18 21:13 Dose: 1,000 mg Ondansetron HCl (Zofran) 4 mg IVP Q6H PRN PRN Reason: Nausea/Vomiting Xigduo Xr 5 Mg-1,000 (Mg Tablet) 0 each PO DAILY [facility] Last Admin: 12/17/18 08:38 Dose: 1 each Patient Own Medication (Patient's Home Medication) 1.8 each SC DAILY [facility] Last Admin: 12/17/18 08:39 Dose: 1.8 each Promethazine HCl (Phenergan) 12.5 mg IM Q4H PRN PRN Reason: Nausea/Vomiting Senna/Docusate Sodium (Senokot S) 2 tab PO BID [facility] Last Admin: 12/17/18 08:37 Dose: 2 tab Sodium Chloride (Flush - Normal Saline) 10 ml IVF PRN PRN PRN Reason: Saline Flush Last Admin: 12/15/18 06:28 Dose: 10 ml Tramadol HCl (Ultram) 50 mg PO Q6H PRN PRN Reason: Mild Pain (1-3) Tramadol HCl (Ultram) 100 mg PO Q6H PRN PRN Reason: Moderate Pain 4-6 Zolpidem Tartrate (Ambien) 5 mg PO HSPRN PRN PRN Reason: Insomnia
--- NOTE | 2018-12-17 14:53 | DIS ---
DATE OF ADMISSION: 12/14/2018 DATE OF DISCHARGE: 12/17/2018 Please see my discharge summary dictated yesterday for more details. This patient was planned for discharge to swing bed and that is why she stayed overnight. Today, she has arrangement for [facility] [facility]. The patient is seen and examined at bedside today. Please see my progress note from today for further detail. I have done discharge medication reconciliation. Final pain medication will defer to primary team. She will continue all her previous medications. She is given aspirin for DVT prophylaxis, ferrous sulfate for anemia, and Humalog insulin as per sliding scale. Rest of medication as per previous. Job ID: [id number]
[2018-12-17] MEDS: HYDROcodone/Acetaminophen 10/325 mg Tablet PO PRN (15:10)
== END 2018-12-17 15:11 | DRG 470 ==
LOC: SDC 05:54 → SJJU 10:45
PROVIDERS: ADMIT Orthopaedic Surgery; ATTEND Orthopaedic Surgery
PROC: 0SRD0J9 Replacement of Left Knee Joint with Synthetic Substitute, Cemented, Open Approach (ICD-10-PCS; principal; 2018-12-14)
DX: M17.12 Unilateral primary osteoarthritis, left knee (principal); E78.5 Hyperlipidemia, unspecified; M81.0 Age-related osteoporosis without current pathological fracture; E11.9 Type 2 diabetes mellitus without complications; D64.9 Anemia, unspecified; Z90.710 Acquired absence of both cervix and uterus; Z98.42 Cataract extraction status, left eye
CPT/HCPCS: 36415; 36416; 80048; 85027; C1713; C1776; J0690; J1885; J2001; J2250; J2405; J2704; J2795; J3010; J3370; J3490

== ENCOUNTER 2018-12-22 15:38 | Inpatient (IN) | payer MEDICARE ==
[2018-12-22] MEDS ORDERED: Enoxaparin Sodium 60 MG/0.6 ML SYRINGE ONE (16:34)
[2018-12-22 16:44] LABS: #Basophils 0.1 thou/uL (0.0-0.2); #Eosinphils 0.1 thou/uL (0.0-0.7); #Lymphocytes 1.3 thou/uL (1.20-3.40); #Monocytes 0.7 thou/uL (0.11-0.59); #Neutrophils 7.3 thou/uL (1.40-6.50); %Basophils 0.7 % (0.0-1.0); %Eosinophils 0.6 % (0.0-10.0); %Neutrophils 77.6 % (42.0-75.0); Hemoglobin 12.4 g/dL (12.0-16.0); Mean Corpuscular HGB CONC 33.9 g/dL (32.0-36.0); Mean Corpuscular Hemoglobin 31.4 pg (27.0-31.0); Mean Corpuscular Volume 92.6 fL (78.0-98.0); Mean Platelet Volume 8.4 fL (7.4-10.4); Platelet Count 217 thou/uL (130-400); RBC Distribution Width 12.4 % (11.5-14.5); Red Blood Cell (RBC) Count 3.94 mill/uL (4.20-5.40); White Blood Cell (WBC) Count 9.4 thou/uL (4.8-10.8)
[2018-12-22 16:50] LABS: PTT 23.6 SEC (22.9-36.1); Prothrombin Time 12.7 SEC (12.0-14.7)
--- NOTE | 2018-12-22 16:50 | PDOC.FPRHP ---
- History of Present Illness Chief Complaint: PE Transfer History of Present Illness: 78 yo female presents via transfer from [place]. Patient had total knee arthroplasty by Dr. Crandall on December 14. Patient was in swingbed rehab. This AM patient became disoriented, SOB, and diaphoretic. Patient was given supplemental O2 and had a d-dimer drawn. It was measured at 5 and underwent CTA that showed bilateral PE. Since being on O2 patient reports feeling much better. She denies any personal or family history of blood clotting disorder. No other complaints. ED Course: 1 mg/kg Lovenox - Allergies/Adverse Reactions Allergies Allergy/AdvReac Type Severity Reaction Status Date / Time No Known Allergies Allergy Verified 12/02/18 13:25 - Home Medications Medication Instructions Recorded Confirmed Type Alendronate Sodium 70 mg PO Q7D 12/02/18 12/17/18 History Atorvastatin Calcium 80 mg PO HS 12/02/18 12/17/18 History Biotin 5,000 mcg PO DAILY 12/02/18 12/17/18 History Cholecalciferol (Vitamin D3) 1,000 unit PO DAILY 12/02/18 12/17/18 History [Vitamin D3] Dapagliflozin/Metformin HCl 1 tab PO DAILY 12/02/18 12/17/18 History [Xigduo Xr 5 mg-1,000 mg Tablet] Liraglutide [Victoza 3-Gume] 1.8 mg SC DAILY 12/02/18 12/17/18 History Meloxicam [Mobic] 1 tab PO DAILY PRN 12/02/18 12/17/18 History metFORMIN HCl [Metformin HCl] 1 tab PO HS 12/02/18 12/17/18 History Aspirin [Ecotrin Low Strength] 81 mg PO BID #60 tab 12/17/18 12/17/18 Rx Ferrous Gluconate [Fergon] 324 mg PO BID #60 tab 12/17/18 12/17/18 Rx HumaLOG [HumaLOG Vial] 0 unit SC TID-WM PRN #1 vial 12/17/18 12/17/18 Rx - History PMHx: DM2, HLD, HTN PSHx: L total knee arthroplasty 2019, Left eye replacement, Hysterectomy FHx: None of note Social: Denies alcohol, tobacco, or drug use. Lives at home independently - Review of Systems General: denies: fever/chills ENT: denies: nasal congestion Respiratory: reports: shortness of breath. denies: cough Cardiovascular: denies: chest pain Gastrointestinal: denies: nausea, vomiting, diarrhea Skin: denies: rashes, lesions Musculoskeletal: reports: pain, tenderness, swelling Neurological: denies: numbness, syncope Psychological: denies: anxiety, depression - Vital signs BP: 128/70 HR: 108 RR: 20 Tmax: 98.0 Pox: 95% on 2L Wt: 61 kg - Physical Exam Constitutional: NAD, awake, alert and oriented HEENT: normocephalic and atraumatic, PERRLA, TM's clear and intact, MMM -HEENT: left eye prosthesis Neck: supple, FROM Heart: RRR, normal S1/S2 Lungs: CTAB, no respiratory distress, no wheezing Abdomen: soft, non-tender, bowel sounds present, no masses/distention Musculoskeletal: normal structure, normal tone -Musculoskeletal: Left knee with post op bandage in place. Clean dry and intact Neurological: no focal deficit, CN II-XII intact Skin: no rash/lesions, good turgor, capillary refill <2 seconds Heme/Lymphatic: no unusual bruising or bleeding Psychiatric: normal mood and affect, good judgment and insight, intact recent and remote memory FMR H&P: Results - Labs Result Diagrams: 12/22/18 16:32 - EKG Interpretation EK lead EKG shows, sinus tachycardia, Rate (beats per minute): 102, Conduction normal, ST segments normal, T waves normal, Loraine normal, Clinical impression: Normal EKG, - Radiology Interpretation CT scan - chest Status: image reviewed by me (Extensive bilateral PE) Chest x-ray Status: image reviewed by me (NAD), report reviewed by me FMR H&P: A/P - Problem List (1) Pulmonary embolism Current Visit: Yes Status: Acute Code(s): I26.99 - OTHER PULMONARY EMBOLISM WITHOUT ACUTE COR PULMONALE (2) Status post total left knee replacement Current Visit: No Status: Acute Code(s): Z96.652 - PRESENCE OF LEFT ARTIFICIAL KNEE JOINT (3) DM2 (diabetes mellitus, type 2) Current Visit: No Status: Chronic Comment: restart Victoza and Xigduo at home doses. PRN ISS w accuchecks. (4) HLD (hyperlipidemia) Current Visit: No Status: Chronic Code(s): E78.5 - HYPERLIPIDEMIA, UNSPECIFIED Comment: restart Atorvastatin - Plan 1. Bilateral PE - Therapeutic lovenox - Will transition to PO anticoagulation - ECHO pending - Lower extremity Doppler pending as well - O2 supplementation as needed 2. s/p LTKR - Routine post op care - PT/OT - Likely will need rehab placement vs SNF on discharge 3. Elevated Troponin/BNP - ECHO pending - Likely secondary to PE - Will repeat troponin if symptomatic 4. DM2 - accuchecks - Continue home meds 5. HLD - Continue home meds Disposition: Stable, will admit to Telemetry services
[2018-12-22] MEDS ORDERED: Meloxicam 7.5 MG TAB PO PRN (17:19)
[2018-12-22 17:29] LABS: CKMB 2.8 ng/mL (0-6.6)
[2018-12-22] MEDS ORDERED: Alendronate Sodium 70 mg Tablet PO SCH (17:30)
[2018-12-22 17:37] LABS: Chloride 99 mmol/L (98-107); Potassium 4.5 mmol/L (3.5-5.1); Sodium 136 mmol/L (136-145)
[2018-12-22 17:38] LABS: Albumin 3.8 g/dL (3.4-4.8); Calcium 9.4 mg/dL (7.8-10.44)
[2018-12-22 17:40] LABS: Bilirubin, Total 0.5 mg/dL (0.2-1.2); Globulin 2.8 g/dL (2.4-3.5); Glucose 148 mg/dL (83-110); Protein, Total 6.6 g/dL (6.0-8.3)
[2018-12-22 17:42] LABS: Anion Gap 18 mmol/L (10-20); Carbon Dioxide 24 mmol/L (23-31)
[2018-12-22 17:43] LABS: AST (SGOT) 31 U/L (5-34); Alkaline Phosphatase 91 U/L (40-150)
[2018-12-22 17:44] LABS: BUN (Urea Nitrogen) 12 mg/dL (9.8-20.1); Calc. Creatinine Clearance 0 mL/min (70-130); Estimated GFR-MDRD 78
[2018-12-22 17:46] LABS: ALT (SGPT) 20 U/L (8-55)
[2018-12-22] MEDS ORDERED: Ondansetron PF 4 MG/2 ML Vial IVP PRN (18:03)
[2018-12-22] MEDS ORDERED: Ondansetron ODT 4 MG TAB PO PRN (18:03)
[2018-12-22] MEDS ORDERED: Nitroglycerin 0.4 MG TAB (25 Tab Bottle) PO PRN (18:07)
[2018-12-22] MEDS ORDERED: Dextrose 50% Abboject 50 ML SYRINGE SLOW IVP PRN (18:07)
[2018-12-22] MEDS ORDERED: Dextrose 5% in Water 1,000 ML IV PRN (18:07)
[2018-12-22] MEDS ORDERED: Non-Formulary Item 1 EACH (Atorvastatin Calcium [Atorvastatin Calcium] 80 MG) PO SCH (21:00)
[2018-12-22] MEDS ORDERED: Aspirin 81 mg Enteric Coated Tablet PO SCH (21:00)
[2018-12-22] MEDS ORDERED: Ferrous Gluconate 324 MG TAB PO SCH (21:00)
[2018-12-22] MEDS ORDERED: Non-Formulary Item 1 EACH (Metformin Hcl [Metformin Hcl] 1 TAB) PO SCH (21:00)
[2018-12-23 01:00] VITALS: BMI 23.8
[2018-12-23 05:08] LABS: Hemoglobin 10.7 g/dL (12.0-16.0); Platelet Count 264 thou/uL (130-400)
[2018-12-23 05:29] LABS: Anion Gap 14 mmol/L (10-20); BUN (Urea Nitrogen) 12 mg/dL (9.8-20.1); Calc. Creatinine Clearance 66 mL/min (70-130); Calcium 8.6 mg/dL (7.8-10.44); Carbon Dioxide 27 mmol/L (23-31); Chloride 99 mmol/L (98-107); Estimated GFR-MDRD 84; Glucose 115 mg/dL (83-110); Potassium 3.9 mmol/L (3.5-5.1); Sodium 136 mmol/L (136-145)
[2018-12-23 05:54] LABS: CKMB 2.2 ng/mL (0-6.6)
[2018-12-23] MEDS: Enoxaparin Sodium 60 MG/0.6 ML SYRINGE SC SCH ×2 (05:54→17:21)
--- NOTE | 2018-12-23 07:23 | ULT ---
ULTRASOUND WITH DOPPLER DUPLEX VENOUS LOWER EXTREMITY BILATERAL: CPT: 22270 ICD-10-PCS: B54D INDICATION: History of pulmonary emboli, edema, recent surgery. TECHNIQUE: Color flow Doppler, spectral waveform analysis of pulsed Doppler, and allen-scale imaging with froy obi and augmentation, were used to evaluate the bilateral common femoral, femoral, popliteal, data warehouse developer ior tibial, and superficial femoral, veins; and the proximal portions of the profunda femoral and gre ater saphenous, veins. FINDINGS: Within the right lower extremity, there is diminished flow and reduced compressibility involving the peroneal vein. Within the left lower extremity, multifocal reduction of flow with diminished compressibility is demo nstrated, which involves the femoral vein at its proximal region, as well as below the level of the l eft knee at the peroneal vein. IMPRESSION: 1. Bilateral deep venous thrombosis. 2. Patient has documented extensive bilateral pulmonary emboli. Findings were conveyed by the raise driller to the patient's nurse, Lesly, at the time of the exam. CODE CR. POS: [id number]
--- NOTE | 2018-12-23 08:13 | HP ---
PRIMARY CARE PHYSICIAN: Dr. Sorenson. The patient was seen and examined on 22 December 2018. CHIEF COMPLAINT: Shortness of breath with lightheadedness at [facility]. HISTORY OF PRESENT ILLNESS: The patient is a 78-year-old female with recent left total knee arthroplasty, diabetes mellitus type 2, hypertension, hyperlipidemia , and degenerative joint disease, presented to the emergency room from [facility] with above complaints. The patient underwent left total knee arthroplasty on 14 December 2018. She did not have any complications after the procedure. She was discharged to the [facility]. Around 1:00 p.m., she had lightheadedness along with diaphoresis, nausea, and shortness of breath. Her O2 saturation was 83% at that time, that improved with O2 supplementation. Due to elevated D-dimer, she underwent a CTA and that was found to have bilateral pulmonary embolism. She was sent to this hospital for admission. At this time, she does not have any shortness of breath. She appears comfortable. No chest pain, diaphoresis, nausea reported while in the emergency room. PAST MEDICAL HISTORY: 1. Diabetes mellitus type 2. 2. Hypertension. 3. Degenerative joint disease. 4. Hyperlipidemia. 5. Osteoporosis. PAST SURGICAL HISTORY: 1. Recent left total knee arthroplasty. 2. 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 3. Hysterectomy. ALLERGIES: NO KNOWN DRUG ALLERGIES. CURRENT HOME MEDICATIONS: 1. Zofran as needed. 2. Tylenol as needed. 3. Lipitor 80 mg at bedtime. 4. Vitamin D3 1000 units daily. 5. Metformin with dapagliflozin 1000/5 daily. 6. Glucagon as needed. 7. Honeydew as needed. 8. Victoza 1.8 mg daily. 9. Mobic daily. 10. Metformin 1000 mg at bedtime. 11. Aspirin 81 mg b.i.d. 12. Ferrous sulfate 325 mg b.i.d. SOCIAL HISTORY: No current use of tobacco, alcohol, or drug use. She currently is at long-term facility due to recent left total knee arthroplasty. She makes her own decision with the help of her family. FAMILY HISTORY: Negative for premature coronary artery disease. Father with diabetes and cancer. REVIEW OF SYSTEMS: All other review of systems were reviewed and were found. PHYSICAL EXAMINATION: VITAL SIGNS: Temperature 98, respirations 20, pulse 108, blood pressure 128/70 , O2 saturation 95% on 2 L nasal cannula. GENERAL: A 78-year-old female, in no apparent distress, feels better with oxygen supplementation. HEENT: Head, atraumatic and normocephalic. Sclerae anicteric. Moist mucous membranes. No oral lesion. NECK: Supple. No JVD appreciated. No carotid bruit. LUNGS: Clear to auscultation bilaterally with mild accessory muscle use. No rhonchi or wheezing. HEART: S1, S2 present. Regular rate and rhythm. Tachycardic. No rubs or gallops. ABDOMEN: Soft, nontender. Bowel sounds present. EXTREMITIES: There is swelling in the left lower extremity compared to the right. No calf tenderness. Well-healing incision from the recent left total knee surgery. SKIN: Warm and dry. LYMPH NODES: No palpable lymph nodes in the neck. PERIPHERAL VASCULAR: Radial pulses palpable bilaterally. MUSCULOSKELETAL: No joint swelling, tenderness. LABORATORY FINDINGS: WBC 9.4, hemoglobin 12.4, hematocrit 36.5, platelet 217. PT/INR and PTT normal range. Chemistry showed sodium 136, potassium 4.5, chloride 99, bicarb 24, BUN 12, creatinine 0.73, glucose of 148. Troponin of 0.445. BNP 219. CT angiogram of the chest by my review showed extensive bilateral pulmonary embolism both in the main pulmonary arteries with emboli extending inferiorly into the interlobar arteries bilaterally and extending into bilateral lower lobe pulmonary arteries. There were emboli seen extending into the upper lobe pulmonary arteries as well as right middle lobe arteries. Venous Doppler of bilateral lower extremity was consistent with bilateral DVT. IMPRESSION: 1. Acute hypoxic respiratory failure secondary to bilateral extensive pulmonary embolism with bilateral lower extremity DVT. 2. Recent left total knee arthroplasty. 3. Diabetes mellitus type 2. 4. Hypertension. 5. Elevated troponin secondary to demand ischemia/type 2 myocardial infarction. 6. Chronic kidney disease, stage 2. 7. Physical deconditioning. 8. Degenerative joint disease. 9. Osteoporosis. PLAN: The patient will be monitored on the telemetry unit. We will continue Lovenox 1 mg/kg twice a day. Echocardiogram will be obtained. Her BNP is slightly elevated at 119.5. Bedrest with bedside commode for now. We will add low-dose PPI. She denies any history of gastrointestinal bleeding. She understands the risks associated with anticoagulation. We will monitor labs on a daily basis. Repeat troponin in a.m. Insulin sliding scale. Hold metformin for now due to contrast exposure. We will resume Lipitor. Plan was discussed with the patient in detail. She stated understanding. Job ID: [id number] MTDD
[2018-12-23] MEDS ORDERED: DAPAGLIFLOZIN PO SCH (09:00)
[2018-12-23] MEDS ORDERED: Non-Formulary Item 1 EACH (Biotin [Biotin] 5,000 MCG) PO SCH (09:00)
[2018-12-23] MEDS ORDERED: [UNRECOGNIZED DRUG - OTHER] PO SCH (09:00)
[2018-12-23] MEDS ORDERED: Non-Formulary Item 1 EACH (Liraglutide [Victoza 3-Pak] 1.8 MG) SC SCH (09:00)
[2018-12-23] MEDS ORDERED: METFORMIN HCL PO SCH (09:00)
[2018-12-23] MEDS: Calcium Carbonate + Vit D 1 TAB PO SCH ×2 (09:39→17:21)
[2018-12-23] MEDS: Multivit, Therapeutic 1 TAB PO SCH (09:39)
[2018-12-23] MEDS: Aspirin 81 mg Enteric Coated Tablet PO SCH (09:39)
[2018-12-23] MEDS: Insulin Regular 300 UNITS/3 ML VIAL SC PRN ×3 (13:19→21:16)
[2018-12-23] MEDS ORDERED: Polyethylene Glycol 3350 17 GM Packet PO PRN (13:54)
--- NOTE | 2018-12-23 15:50 | PRG ---
DATE OF SERVICE: 12/23/2018 SUMMARY: A 78-year-old female with recent left total knee arthroplasty, presented from swing bed with shortness of breath. She was diagnosed with bilateral pulmonary embolism. Shortness of breath is improving. She denies any fever or chills. No cough or chest pain reported. No syncope. REVIEW OF SYSTEMS: All other review of systems was reviewed and was found negative. CURRENT MEDICATIONS: Reviewed. The patient is on 1 mg/kg Lovenox twice a day. She is also on 81 mg aspirin, Lipitor as well as Victoza. Telemetry monitoring by my review showed sinus rhythm. PHYSICAL EXAMINATION: VITAL SIGNS: Temperature 97.3, pulse rate of 93, respirations 16, O2 saturation of 93% on 2 L nasal cannula, blood pressure 117/57, and weight of 130 pounds. GENERAL: A 78-year-old female in no apparent distress. HEENT: Head, atraumatic and normocephalic. Sclerae anicteric. Moist mucous membrane. No oral lesion. NECK: Supple. No JVD. No carotid bruit. LUNGS: Clear to auscultation bilaterally. No wheezing, rales, or rhonchi. No accessory muscle use. HEART: S1 and S2 present. Regular rate and rhythm. No rubs or gallops appreciated. ABDOMEN: Soft and nontender. Bowel sounds present. No rebound or guarding. EXTREMITIES: There is left lower extremity swelling more than the right. No calf tenderness. PSYCHIATRY: Normal affect. Alert, awake, and oriented x3. NEUROLOGIC: Grossly nonfocal. Moves all 4 extremities. LABORATORY FINDINGS: Hemoglobin 10.7, hematocrit 32.3. BUN 12, creatinine 0.68. Troponin 0.286 with CK-MB 2.2. BNP was 119.5. Bilateral lower extremity Doppler by my review was positive for bilateral DVT. CT angiogram of the chest by my review was consistent with bilateral pulmonary embolism. IMPRESSION: 1. Acute hypoxic respiratory failure secondary to bilateral extensive pulmonary embolism with bilateral lower extremity deep venous thrombosis. 2. Diabetes mellitus type 2. 3. Hypertension. 4. Type 2 myocardial infarction. 5. Recent left total knee arthroplasty. 6. Physical deconditioning. 7. Degenerative joint disease. 8. Osteoporosis. 9. Chronic kidney disease, stage 2. 10. Anemia, probably chronic. PLAN: Lovenox 1 mg/kg will be continued. Await echocardiogram. We will increase activity to bathroom privileges for now. Continue PPIs. Add Senokot-S due to constipation. The patient understands the risk associated with anticoagulation. Metformin is currently on hold. We will resume Victoza. Code status was readdressed. She is requesting chemical code. Plan of care was discussed with the patient in detail. She stated understanding. Job ID: [id number]
[2018-12-23 17:42] LABS: Hemoglobin 11.4 g/dL (12.0-16.0); Platelet Count 290 thou/uL (130-400)
[2018-12-23] MEDS: Acetaminophen 325 MG TAB PO PRN (19:54)
[2018-12-23] MEDS: Atorvastatin Calcium 40 MG TAB PO SCH (20:20)
[2018-12-23] MEDS: Senokot S 8.6-50 MG TAB PO SCH (20:20)
[2018-12-24] MEDS: Enoxaparin Sodium 60 MG/0.6 ML SYRINGE SC SCH ×2 (05:50→16:12)
[2018-12-24] MEDS: Multivit, Therapeutic 1 TAB PO SCH (10:04)
[2018-12-24] MEDS: Calcium Carbonate + Vit D 1 TAB PO SCH ×2 (10:04→16:12)
[2018-12-24] MEDS: Senokot S 8.6-50 MG TAB PO SCH ×2 (10:04→21:01)
[2018-12-24] MEDS: Aspirin 81 mg Enteric Coated Tablet PO SCH (10:04)
[2018-12-24] MEDS: (Liraglutide [Victoza 3-Pak] 1.8 MG) SC SCH ×2 (10:13→10:14)
[2018-12-24] MEDS: Insulin Regular 300 UNITS/3 ML VIAL SC PRN ×2 (11:59→22:38)
--- NOTE | 2018-12-24 12:13 | PRG ---
DATE OF SERVICE: 12/24/2018 SUBJECTIVE: A 78-year-old female with recent left total knee arthroplasty, presented 2 days ago with shortness of breath. A workup was consistent with bilateral pulmonary embolism with bilateral lower extremity DVT. She continues to be on oxygen supplementation. Symptomatically, she feels better. She denies any chest pain or palpitations. REVIEW OF SYSTEMS: No nausea, vomiting, diaphoresis, focal deficit, or chest pain. PHYSICAL EXAMINATION: VITAL SIGNS: Temperature 98.3, pulse 87, blood pressure 131/59, pulse rate of 19, and O2 saturation 96% on 2 L nasal cannula. GENERAL: A 78-year-old female, in no apparent distress. LUNGS: Showed diminished air entry at bilateral bases. No wheezing, rales, or rhonchi. HEART: S1 and S2 present. Regular rate and rhythm. No rubs or gallops. ABDOMEN: Soft. Bowel sounds present. EXTREMITIES: Left lower extremity edema persist. No calf tenderness. NEUROLOGIC: Grossly nonfocal. CODE STATUS: Chemical code. LABORATORY DATA: Chemistry showed creatinine of 0.65 with GFR of 89. Telemetry monitoring by my review showed sinus rhythm. IMPRESSION: 1. Acute hypoxic respiratory failure secondary to bilateral extensive pulmonary embolism. 2. Bilateral lower extremity deep venous thrombosis. 3. Diabetes mellitus, type 2. 4. Hypertension. 5. Recent left total knee arthroplasty. 6. Elevated troponin secondary to demand ischemia/type 2 myocardial infarction. 7. Physical deconditioning. 8. Degenerative joint disease. 9. Osteoporosis. 10. Chronic anemia. 11. Chronic kidney disease, stage 2. 12. Chronic diastolic dysfunction. PLAN: We will continue Lovenox. We will consult Pulmonary, Dr. Aragon. We will continue current home medications including Victoza. We will continue aspirin for now due to elevated troponin. Troponin on admission was 0.445. Echocardiogram showed ejection fraction 60% to 65% with diastolic dysfunction and moderately enlarged right ventricle cavity. Plan was discussed with the patient in detail. She stated understanding. We will continue physical therapy. Job ID: [id number]
[2018-12-24] MEDS: Atorvastatin Calcium 40 MG TAB PO SCH (21:01)
[2018-12-25 05:51] LABS: Anion Gap 11 mmol/L (10-20); BUN (Urea Nitrogen) 16 mg/dL (9.8-20.1); Calc. Creatinine Clearance 72 mL/min (70-130); Calcium 8.7 mg/dL (7.8-10.44); Carbon Dioxide 30 mmol/L (23-31); Chloride 98 mmol/L (98-107); Estimated GFR-MDRD Greater than 90; Glucose 130 mg/dL (83-110); Potassium 4.1 mmol/L (3.5-5.1); Sodium 135 mmol/L (136-145)
[2018-12-25 05:53] LABS: Hemoglobin 10.5 g/dL (12.0-16.0); Platelet Count 305 thou/uL (130-400)
[2018-12-25] MEDS: Enoxaparin Sodium 60 MG/0.6 ML SYRINGE SC SCH (06:23)
[2018-12-25] MEDS: (Liraglutide [Victoza 3-Pak] 1.8 MG) SC SCH (08:33)
[2018-12-25] MEDS: Aspirin 81 mg Enteric Coated Tablet PO SCH (08:33)
[2018-12-25] MEDS: Multivit, Therapeutic 1 TAB PO SCH (08:33)
[2018-12-25] MEDS: Calcium Carbonate + Vit D 1 TAB PO SCH ×2 (08:33→16:12)
[2018-12-25] MEDS: Senokot S 8.6-50 MG TAB PO SCH ×2 (08:33→20:11)
[2018-12-25] MEDS: Insulin Regular 300 UNITS/3 ML VIAL SC PRN ×2 (11:21→17:30)
--- NOTE | 2018-12-25 11:27 | PDOC.PN ---
- Subjective Encounter Start Date: 12/25/18 Encounter Start Time: 11:25 Doing very well. Only concern presently is her blood sugars. She was seeing an package delivery driver in [place], but moving herself and her medical care to this area. - Objective Resuscitation Status - Order Detail: 12/23/18 13:48 Resuscitation Status Routine Resuscitation Status: PRTL: Chem only Discussed with: confirmed with patient Vital Signs & Weight: Vital Signs (12 hours) Temp Pulse Resp BP Pulse Ox 12/25/18 07:25 98.7 F 77 18 144/64 H 94 L 12/25/18 04:00 98.4 F 79 16 127/58 L 96 Weight Weight 133 lb I&O: 12/24/18 12/25/18 12/26/18 06:59 06:59 06:59 Intake Total 1480 240 Output Total 1300 500 Balance 180 -260 Result Diagrams: 12/25/18 05:20 12/25/18 05:20 Additional Labs: Accuchecks 12/25/18 12/25/18 12/24/18 10:42 05:25 20:13 POC Glucose 303 H 137 H 315 H 12/24/18 12/24/18 17:15 11:29 POC Glucose 288 H 214 H Phys Exam - Physical Examination Constitutional: NAD Respiratory: no wheezing, no rales, no rhonchi Slightly coarse BS at both bases. Cardiovascular: RRR, no significant murmur Gastrointestinal: soft, non-tender, no distention, positive bowel sounds Trace edema LLE. Neurological: non-focal Psychiatric: normal affect, A&O x 3 Skin: no rash Dx/Plan (1) Acute respiratory failure with hypoxia Code(s): J96.01 - ACUTE RESPIRATORY FAILURE WITH HYPOXIA Status: Acute (2) Pulmonary embolism Code(s): I26.99 - OTHER PULMONARY EMBOLISM WITHOUT ACUTE COR PULMONALE Status : Acute (3) Status post total left knee replacement Code(s): Z96.652 - PRESENCE OF LEFT ARTIFICIAL KNEE JOINT Status: Acute (4) Anemia, normocytic normochromic Code(s): D64.9 - ANEMIA, UNSPECIFIED Status: Chronic (5) DM2 (diabetes mellitus, type 2) Status: Chronic Comment: restart Victoza and Xigduo at home doses. PRN ISS w accuchecks. (6) HLD (hyperlipidemia) Code(s): E78.5 - HYPERLIPIDEMIA, UNSPECIFIED Status: Chronic Comment: restart Atorvastatin (7) Osteoarthritis Code(s): M19.90 - UNSPECIFIED OSTEOARTHRITIS, UNSPECIFIED SITE Status: Chronic (8) Osteoporosis Code(s): M81.0 - AGE-RELATED OSTEOPOROSIS W/O CURRENT PATHOLOGICAL FRACTURE Status: Chronic (9) DVT (deep venous thrombosis) Code(s): I82.409 - ACUTE EMBOLISM AND THOMBOS UNSP DEEP VN UNSP LOWER EXTREMITY Status: Acute - Plan * Feels very well. She is off of oxygen at the time of the exam and is very comfortable with no SOB or tachypnea. * Will check RA SaO2 at rest and ambulation. * Change the Lovenox to Eliquis. * Discussed medication options at length. Discussed risks of anticoagulation and the difference between the different types of meds. Prefers a Xa. * Will resume her metformin. Likely held due to the CTA. Blood sugars are high. Pharmacy does not carry all of her meds. * Case Management consult. Patient was in the swing bed in [facility]. [facility]. * If sats are good and she does ok with the Eliquis, can DC tomorrow.
[2018-12-25] MEDS: Acetaminophen 325 MG TAB PO PRN (16:12)
[2018-12-25] MEDS: metFORMIN 500 MG TAB PO SCH (16:12)
--- NOTE | 2018-12-25 18:20 | CON ---
DATE OF CONSULTATION: 12/25/2018 HISTORY OF PRESENT ILLNESS: Ms. Orlando is a 78-year-old female. She was consulted for thromboembolic disease. She apparently had a knee replacement and developed pulmonary emboli, was admitted on the 3rd. Venogram on the 4th showed clots in both lower extremities. She has subsequently been anticoagulated. She has no complaints at this time. PAST MEDICAL HISTORY: Remarkable for: 1. Diabetes. 2. Hypertension. 3. Degenerative arthritis. 4. Lipid disorder. 5. Osteoporosis. 6. Recent left knee replacement. 7. 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 She said she had a Staph pneumonia in September. I believe 2006 in February, she had severe left eye pain may ended up doing an enucleation because of an infection in her eye. 8. Status post hysterectomy. SOCIAL HISTORY: She is a nonsmoker, nondrinker, and nondrug user. FAMILY HISTORY: Negative for vascular disease. Positive for diabetes and cancer. Negative for lung disease in early age. MEDICATIONS: Reviewed. REVIEW OF SYSTEMS: Ten point review of systems completed, is negative. PHYSICAL EXAMINATION: GENERAL: Ms. Orlando is a 78-year-old female VITAL SIGNS: She is afebrile, heart rate 89, respiratory rate 16, oximetry is 94% on room air, and blood pressure 139/75. HEENT: Her right pupil reacts. Her extraocular movement was full in the right. She has a prosthesis on the left. NECK: Supple. No lymphadenopathy. LUNGS: Clear. HEART: Regular rhythm. S1 and S2 are normal. ABDOMEN: Soft and nontender. EXTREMITIES: Without clubbing, cyanosis, or edema. LABORATORY DATA: Hemoglobin today is 10.5 and 11.4 yesterday. White count is 9.4 on admission. Electrolytes are normal. Creatinine is 0.6. IMPRESSION: Deep venous thrombosis with pulmonary emboli secondary to inactivity after knee replacement. I agree with current management. Probably recommend 6 months of full-dose anticoagulation and then switching her to prophylactic dose of anticoagulation for a year, but I will be happy to follow her as an outpatient. TIME SPENT: This is a 70-minute consult, with greater than 50% of the time spent on the unit coordinating care. Job ID: [id number] [facility] CENTERAshley
[2018-12-25] MEDS: Atorvastatin Calcium 40 MG TAB PO SCH (20:10)
[2018-12-25] MEDS: Apixaban 5 MG TAB PO SCH (20:11)
--- NOTE | 2018-12-25 22:10 | EKG ---
Test Reason : Blood Pressure : / mmHG Vent. Rate : 102 BPM Atrial Rate : 102 BPM P-R Int : 134 ms QRS Dur : 072 ms QT Int : 364 ms P-R-T Axes : 062 022 011 degrees QTc Int : 474 ms Sinus tachycardia Otherwise normal ECG Confirmed by ELAINA EDGE ([id number]), editor & co founder MURPHY HOLBROOK ([id number]) on 12/25/2018 10:09:16 PM Referred By: Confirmed By:ELAINA EDGE
[2018-12-26] MEDS: Calcium Carbonate + Vit D 1 TAB PO SCH ×2 (08:01→16:00)
[2018-12-26] MEDS: Apixaban 5 MG TAB PO SCH ×2 (08:01→20:07)
[2018-12-26] MEDS: metFORMIN 500 MG TAB PO SCH ×2 (08:01→16:00)
[2018-12-26] MEDS: Multivit, Therapeutic 1 TAB PO SCH (08:02)
[2018-12-26] MEDS: Aspirin 81 mg Enteric Coated Tablet PO SCH (08:02)
[2018-12-26] MEDS: (Liraglutide [Victoza 3-Pak] 1.8 MG) SC SCH (08:02)
[2018-12-26] MEDS: Senokot S 8.6-50 MG TAB PO SCH ×2 (08:02→20:07)
[2018-12-26] MEDS: Insulin Regular 300 UNITS/3 ML VIAL SC PRN (11:15)
--- NOTE | 2018-12-26 13:24 | PRG ---
DATE OF SERVICE: 12/26/2018 SUBJECTIVE: Skyla Orlando has no complaints. She is tentatively scheduled to be transferred back to rehab. OBJECTIVE: VITAL SIGNS: Stable. She is afebrile. Heart rate 87, respiratory rate is 18, oximetry is 95% now on room air, and blood pressure 127/61. LUNGS: Clear. HEART: Regular rhythm. ABDOMEN: Soft. EXTREMITIES: Without asymmetry or edema. LABORATORY DATA: Hemoglobin yesterday was 10.5. Glucose 163 this morning. IMPRESSION: Thromboembolic disease, clinically stable. She will go back to rehab. I have given my phone number. I have asked her to see me in 3 months. Job ID: [id number]
[2018-12-26] MEDS: Atorvastatin Calcium 40 MG TAB PO SCH (20:07)
[2018-12-27] MEDS ORDERED: HYDROcodone/Acetaminophen 10/325 mg Tablet PO PRN (05:25)
[2018-12-27 05:39] LABS: Hemoglobin 10.4 g/dL (12.0-16.0); Platelet Count 341 thou/uL (130-400)
[2018-12-27 06:07] LABS: Anion Gap 13 mmol/L (10-20); BUN (Urea Nitrogen) 13 mg/dL (9.8-20.1); Calc. Creatinine Clearance 74 mL/min (70-130); Calcium 8.7 mg/dL (7.8-10.44); Carbon Dioxide 26 mmol/L (23-31); Chloride 98 mmol/L (98-107); Estimated GFR-MDRD Greater than 90; Glucose 142 mg/dL (83-110); Sodium 133 mmol/L (136-145)
[2018-12-27] MEDS: Calcium Carbonate + Vit D 1 TAB PO SCH (08:35)
[2018-12-27] MEDS: metFORMIN 500 MG TAB PO SCH (08:35)
[2018-12-27] MEDS: Apixaban 5 MG TAB PO SCH (08:36)
[2018-12-27] MEDS: Senokot S 8.6-50 MG TAB PO SCH (08:36)
[2018-12-27] MEDS: Aspirin 81 mg Enteric Coated Tablet PO SCH (08:36)
[2018-12-27] MEDS: Multivit, Therapeutic 1 TAB PO SCH (08:36)
[2018-12-27] MEDS: (Liraglutide [Victoza 3-Pak] 1.8 MG) SC SCH (08:38)
--- NOTE | 2018-12-27 08:38 | PDOC.PN ---
- Subjective Encounter Start Date: 12/26/18 Encounter Start Time: 09:30 Doing well. Breathing comfortably. No new complaints. - Objective Resuscitation Status - Order Detail: 12/23/18 13:48 Resuscitation Status Routine Resuscitation Status: PRTL: Chem only Discussed with: confirmed with patient Vital Signs & Weight: Vital Signs (12 hours) Temp Pulse Resp BP Pulse Ox 12/27/18 07:45 98.1 F 73 16 120/58 L 92 L 12/27/18 06:50 93 L 12/27/18 03:16 98.3 F 80 16 143/65 H 93 L Weight Weight 130 lb 9 oz I&O: 12/26/18 12/27/18 12/28/18 06:59 06:59 06:59 Intake Total 1440 2050 Output Total 1380 0 Balance 60 -30 Result Diagrams: 12/27/18 04:57 12/27/18 04:57 Additional Labs: Accuchecks 12/27/18 12/26/18 12/26/18 05:16 20:07 16:33 POC Glucose 147 H 150 H 113 H 12/26/18 10:57 POC Glucose 163 H Phys Exam - Physical Examination Constitutional: NAD Respiratory: no wheezing, no rales, no rhonchi Cardiovascular: RRR, no significant murmur Gastrointestinal: soft, non-tender, no distention, positive bowel sounds Musculoskeletal: no edema Neurological: non-focal Psychiatric: normal affect, A&O x 3 Skin: normal turgor Dx/Plan (1) Acute respiratory failure with hypoxia Code(s): J96.01 - ACUTE RESPIRATORY FAILURE WITH HYPOXIA Status: Acute (2) Pulmonary embolism Code(s): I26.99 - OTHER PULMONARY EMBOLISM WITHOUT ACUTE COR PULMONALE Status : Acute (3) Status post total left knee replacement Code(s): Z96.652 - PRESENCE OF LEFT ARTIFICIAL KNEE JOINT Status: Acute (4) Anemia, normocytic normochromic Code(s): D64.9 - ANEMIA, UNSPECIFIED Status: Chronic (5) DM2 (diabetes mellitus, type 2) Status: Chronic Comment: restart Victoza and Xigduo at home doses. PRN ISS w accuchecks. (6) HLD (hyperlipidemia) Code(s): E78.5 - HYPERLIPIDEMIA, UNSPECIFIED Status: Chronic Comment: restart Atorvastatin (7) Osteoarthritis Code(s): M19.90 - UNSPECIFIED OSTEOARTHRITIS, UNSPECIFIED SITE Status: Chronic (8) Osteoporosis Code(s): M81.0 - AGE-RELATED OSTEOPOROSIS W/O CURRENT PATHOLOGICAL FRACTURE Status: Chronic (9) DVT (deep venous thrombosis) Code(s): I82.409 - ACUTE EMBOLISM AND THOMBOS UNSP DEEP VN UNSP LOWER EXTREMITY Status: Acute - Plan * Doing well on Eliquis. * Not requiring supplemental oxygen. * Will notify CM that we can begin DC planning. * Still needs therapy and should be able to go back to the [facility] Swing bed.
[2018-12-27 11:32] VITALS: BP 126/58; TEMP 99
[2018-12-27] MEDS: Insulin Regular 300 UNITS/3 ML VIAL SC PRN (11:38)
--- NOTE | 2018-12-27 11:54 | PQF ---
MOON GENAO HEDY LOCK DO [id number] CLINICAL DOCUMENTATION IMPROVEMENT CLARIFICATION FORM: ICD-10 Updated PLEASE DO AN ADDENDUM TO THE PROGRESS NOTE WITH ANY DOCUMENTATION UPDATES OR ADDITIONS AND CARRY THROUGH TO DC SUMMARY. THANK YOU. DATE: 12/28 ATTN: DR MIL GRAYSON Please exercise your independent, professional judgment in responding to the clarification form. Clinical indicators are provided on the bottom of this form for your review. Please check appropriate box(s): [ x ] BILATERAL PE & BLE DVT are a complication of current/recent surgery (L TKR 12/14/18) [ ] BILATERAL PE & BLE DVT are not a complication of current/recent surgery ( L TKR 12/14/18) [ ] Other diagnosis [ ] Unable to determine In addition, please specify: Present on Admission (POA): [ x ] Yes [ ] No [ ] Unable to determine CLINICAL INDICATORS - SIGNS / SYMPTOMS / LABS ER PHYSICIAN DOCUMENTATION 12/22: LARGE BILATERAL HD STABLE PE POST-OPERATIVELY H&P (LADHA) 12/22: HX OF PRESENT ILLNESS: ...RECENT LEFT TOTAL KNEE ARTHROPLASTY 12/14/2018. SHE DID NOT HAVE ANY COMPLICATIONS AFTER THE PROCEDURE. ....D/T ELEVATED D-DIMER, SHE UNDERWENT CTA & WAS FOUND TO HAVE B PULMONARY EMBOLISM. ...VENOUS DOPPLER OF BLE WAS CONSISTENT W/BILATERAL DVT. IMPRESSION: 1) ACUTE HYPOXIC RESPIRATORY FAILURE 2/2 B EXTENSIVE PE W/BLE DVT; 2) RECENT L TOTAL KNEE ARTHROPLASTY RISKS: L TOTAL KNEE ARTHROPLASTY (12/14/18) ACUTE HYPOXIC RESPIRATORY FAILURE (H&P) TREATMENT: SQ LOVENOX (12/23-) PO ANTICOAGULANT (ELIQUIS 12/25-PRESENT) PULMONOLOGY CONSULT (12/25) THANK YOU! Katina (This form is maintained as a part of the permanent medical record) 2014 [employer]. All Rights Reserved Katina Staley RN, BSN [email or web address] Office: [phone] [facility] CENTERAshley
--- NOTE | 2018-12-28 08:35 | DIS ---
DATE OF ADMISSION: 12/22/2018 DATE OF DISCHARGE: 12/27/2018 DISCHARGE DIAGNOSES: 1. Extensive bilateral pulmonary emboli. 2. Bilateral lower extremity deep vein thrombosis. 3. Postop left knee replacement. 4. Acute hypoxic respiratory failure. 5. Normocytic normochromic anemia. 6. Diabetes mellitus type 2. 7. Hyperlipidemia. 8. Osteoarthritis. 9. Osteoporosis. HISTORY OF PRESENT ILLNESS: The patient is a 78-year-old female, who had a total left knee replacement on 12/14. She had no complications and was discharged to [facility] for rehab. Subsequently, the patient developed shortness of breath and lightheadedness and presented to the emergency department where she was found to have hypoxia. Workup at that time included a CT angiogram of the chest that showed extensive bilateral pulmonary emboli in the main pulmonary arteries with emboli extending inferiorly into the interlobular arteries bilaterally and extending into the bilateral lower lobe pulmonary arteries and upper and middle lobe arteries. Lower extremity DVT also confirmed bilateral DVTs. HOSPITAL COURSE: The patient was admitted to the hospital, maintained on supplemental oxygen, initial bedrest, and subcutaneous therapeutic doses of Lovenox. Echocardiogram was performed, which revealed an EF of 60% to 65%, some suggestion of diastolic dysfunction. Moderately enlarged right ventricular cavity and mildly enlarged right atrium as well. Otherwise, there were no significant findings. The patient did very well over the following couple of days. Her hypoxia resolved and she was saturating very well off oxygen and was quite comfortable. She was seen in consultation by Pulmonology and we changed her from Lovenox to initial dosing for Eliquis. With that, the patient was felt to be stable for discharge back to the [facility]. PHYSICAL EXAMINATION: VITAL SIGNS: On day of discharge, temperature is 98.1, pulse 73, respirations 16, O2 saturation 92% to 95% on room air, BP is 120/58. GENERAL: She is awake, alert, oriented, pleasant, and cooperative. HEENT: PERRL. No OP lesions. NECK: Supple and symmetric. HEART: Regular rate and rhythm without murmurs. LUNGS: Clear bilaterally. ABDOMEN: Soft, nontender, and nondistended. EXTREMITIES: There is no cyanosis, clubbing, or edema. Left knee has no significant edema or erythema. There is a bandage over the surgical incision with no drainage on the dressing. DISPOSITION: The patient will be discharged back to [facility] pending approval. DIET: She will have a regular diet ACTIVITY: Activity level is as tolerated. She will continue with physical therapy. MEDICATIONS: She will continue with her usual home medications includin. Victoza. 2. [place]. 3. Tylenol. 4. Zofran. 5. [place]ergon. 6. Metformin. 7. Atorvastatin. 8. Aspirin. 9. Xigduo XR. 10. Vitamin D3. 11. Mobic. She will have a new prescription for Eliquis 10 mg p.o. b.i.d., she should be on the 10 mg b.i.d. dose for 5 more days and then drop down to 5 mg b.i.d. per the recommendations of Pulmonology. She should be on the Eliquis for 6 months and then consider a lower prophylactic dose for another 6 months. FOLLOWUP: She is to have followup at the [facility] and to follow up with Dr. Aragon in the outpatient clinic in 3 months. Time spent in discharge activities, including face to face time with the patient , was 33 min. Job ID: [id number] MTDD
== END 2018-12-27 12:30 | DRG 280 ==
LOC: ERS 15:38 → ERHOLD 17:27 → 2NO 12-23 00:33
PROVIDERS: ADMIT Internal Medicine; ATTEND Internal Medicine
DX: T81.72XA Complication of vein following a procedure, not elsewhere classified, initial encounter (principal); I21.A1 Myocardial infarction type 2; J96.01 Acute respiratory failure with hypoxia; I82.412 Acute embolism and thrombosis of left femoral vein; I82.4Z3 Acute embolism and thrombosis of unspecified deep veins of distal lower extremity, bilateral; I26.99 Other pulmonary embolism without acute cor pulmonale; Z96.652 Presence of left artificial knee joint; I12.9 Hypertensive chronic kidney disease with stage 1 through stage 4 chronic kidney disease, or unspecified chronic kidney disease; E78.5 Hyperlipidemia, unspecified; M19.90 Unspecified osteoarthritis, unspecified site; M81.0 Age-related osteoporosis without current pathological fracture; N18.2 Chronic kidney disease, stage 2 (mild); E11.22 Type 2 diabetes mellitus with diabetic chronic kidney disease; D63.1 Anemia in chronic kidney disease; Z90.710 Acquired absence of both cervix and uterus; Z79.84 Long term (current) use of oral hypoglycemic drugs; Z79.82 Long term (current) use of aspirin; Z79.899 Other long term (current) drug therapy
CPT/HCPCS: 36415; 36416; 80048; 82553; 83880; 84484; 85014; 85018; 85049; 85610; 85730; 93005; 93306; 93970; 94760; 96372; J1650; J1815

== ENCOUNTER 2019-04-04 13:00 | Outpatient (CLI) | payer MEDICARE ==
--- NOTE | 2019-04-04 13:28 | RAD ---
EXAM: Chest PA and lateral: HISTORY: Dyspnea COMPARISON: 12/22/2018 FINDINGS: Heart: Normal cardiac silhouette Aorta: Atherosclerosis of the aortic knob Pulmonary vessels: Normal Costophrenic angles: Costophrenic angles are clear. Lungs: No consolidation or masses. Pneumothorax: No pneumothorax Osseous structures: No osseous abnormalities IMPRESSION: 1. No acute cardiopulmonary process. 2. Atherosclerosis of the aortic knob
== END 2019-04-04 13:01 | disposition home or self-care (01) ==
LOC: RAD 13:00
PROVIDERS: ATTEND Internal Medicine Critical Care Medicine
DX: R06.00 Dyspnea, unspecified (principal); I70.0 Atherosclerosis of aorta
CPT/HCPCS: 71046

== ENCOUNTER 2020-09-27 13:00 | Inpatient (IN) | payer MEDICARE ==
[2020-10-01 10:27] VITALS: BMI 24.7
[2020-10-02] MEDS ORDERED: Vancomycin 1 GM/200 ML BAG ONE ×2 (06:19→06:20)
[2020-10-02] MEDS ORDERED: Sodium Chloride 0.9% 100 ML ONE (06:19)
[2020-10-02] MEDS ORDERED: Tranexamic Acid 1,000 MG/10 ML VIAL ONE (06:19)
[2020-10-02] MEDS ORDERED: Fentanyl 100 MCG/2 ML VIAL ONE (06:24)
[2020-10-02] MEDS ORDERED: Lidocaine 1% (PF) 30 ML VIAL ONE (06:24)
[2020-10-02] MEDS ORDERED: Midazolam HCl 2 mg/2 ml Vial ONE (06:24)
[2020-10-02] MEDS ORDERED: Bupivacaine HCl 0.5%/Epinephrine 1:200,000/PF 30 ml Vial ONE (06:31)
[2020-10-02] MEDS ORDERED: Lidocaine 1% PF 5 ML VIAL ONE (06:31)
[2020-10-02] MEDS ORDERED: Ropivacaine 2% HCl/PF (20 MG/10 ML VIAL) ONE (06:31)
[2020-10-02] MEDS ORDERED: Ondansetron PF 4 MG/2 ML Vial ONE (06:31)
[2020-10-02] MEDS ORDERED: PROPOFOL 200 MG/20 ML VIAL ONE (06:31)
[2020-10-02] MEDS ORDERED: Fentanyl 100 MCG/2 ML VIAL SLOW IVP PRN (06:50)
[2020-10-02] MEDS ORDERED: traMADol HCl 50 MG TAB PO PRN ×3 (06:50→07:30)
[2020-10-02] MEDS ORDERED: Acetaminophen 325 MG TAB PO PRN (06:50)
[2020-10-02] MEDS ORDERED: diphenhydrAMINE 25 MG CAP PO PRN (06:50)
[2020-10-02] MEDS ORDERED: Ondansetron PF 4 MG/2 ML Vial IVP PRN ×2 (06:50→07:30)
[2020-10-02] MEDS ORDERED: Promethazine HCl 25 MG/ML VIAL IM PRN ×3 (06:50→08:03)
[2020-10-02] MEDS ORDERED: HYDROcodone/Acetaminophen 10/325 mg Tablet PO PRN ×3 (06:50→07:30)
[2020-10-02] MEDS ORDERED: Zolpidem Tartrate 5 MG TAB PO PRN ×2 (06:50→07:30)
[2020-10-02] MEDS ORDERED: Phenylephrine 10 MG/ML VIAL ONE (07:05)
[2020-10-02] MEDS ORDERED: Fentanyl 100 MCG/2 ML VIAL IV PRN (07:25)
[2020-10-02] MEDS ORDERED: Ropivacaine HCl/PF 250 ML in Premix Bag 1 BAG NERVE BLCK SCH (07:30)
[2020-10-02] MEDS ORDERED: Ondansetron HCl/PF 4 MG/2 ML Vial IVP PRN (08:03)
[2020-10-02] MEDS ORDERED: Promethazine HCl 25 MG/ML VIAL SLOW IVP PRN (08:03)
[2020-10-02] MEDS ORDERED: Non-Formulary Item 1 EACH (Liraglutide [Victoza 3-Pak] 0.6 MG/0.1 ML Pen.Injctr) SC SCH (09:00)
[2020-10-02] MEDS: Senokot S 8.6-50 MG TAB PO SCH ×2 (10:26→19:41)
[2020-10-02] MEDS: metFORMIN 500 MG TAB PO SCH ×2 (10:26→19:40)
[2020-10-02] MEDS: Ferrous Gluconate 324 MG TAB PO SCH ×2 (10:27→19:39)
[2020-10-02] MEDS: Aspirin 81 mg Enteric Coated Tablet PO SCH ×2 (10:27→19:39)
[2020-10-02] MEDS: Multivitamin W/ Minerals 1 TAB PO SCH (10:27)
[2020-10-02] MEDS: Cholecalciferol 1,000 UNITS (25 MCG) TAB PO SCH (10:27)
[2020-10-02] MEDS: Empagliflozin 10 MG TAB PO SCH ×2 (11:07→19:40)
[2020-10-02] MEDS: Ketorolac Tromethamine 30 MG/ML VIAL IVP SCH ×3 (11:08→23:13)
[2020-10-02] MEDS: Sodium Chloride 0.9% 1,000 ML IV SCH ×3 (11:08→23:43)
[2020-10-02 11:59] LABS: #Lymphocytes 1.5 thou/uL (1.20-3.40); #Monocytes 0.5 thou/uL (0.11-0.59); #Neutrophils 7.4 thou/uL (1.40-6.50); %Basophils 0.4 % (0.0-1.0); %Eosinophils 0.5 % (0.0-10.0); %Lymphocytes 16.2 % (21.0-51.0); %Monocytes 5.1 % (0.0-10.0); %Neutrophils 77.9 % (42.0-75.0); Hemoglobin 11.4 g/dL (12.0-16.0); Mean Corpuscular HGB CONC 33.4 g/dL (32.0-36.0); Mean Corpuscular Hemoglobin 30.7 pg (27.0-31.0); Mean Platelet Volume 7.9 fL (7.4-10.4); Platelet Count 173 thou/uL (130-400); RBC Distribution Width 11.9 % (11.5-14.5); White Blood Cell (WBC) Count 9.5 thou/uL (4.8-10.8)
[2020-10-02 12:25] LABS: Anion Gap 13 mmol/L (10-20); BUN (Urea Nitrogen) 17 mg/dL (9.8-20.1); Calc. Creatinine Clearance 62 mL/min (70-130); Calcium 8.2 mg/dL (7.8-10.44); Carbon Dioxide 26 mmol/L (23-31); Chloride 103 mmol/L (98-107); Glucose 133 mg/dL (83-110); Potassium 4.1 mmol/L (3.5-5.1); Sodium 138 mmol/L (136-145)
[2020-10-02] MEDS: CEFAZOLIN 2 GM in Premix Bag 1 BAG IVPB SCH ×2 (13:20→23:12)
[2020-10-02] MEDS ORDERED: HumaLOG 300 UNITS/3 ML VIAL SC PRN (14:38)
[2020-10-02] MEDS ORDERED: Dextrose 50% Abboject 50 ML SYRINGE SLOW IVP PRN (14:38)
[2020-10-02] MEDS ORDERED: Dextrose 5% in Water 1,000 ML IV PRN (14:38)
[2020-10-02] MEDS: Atorvastatin Calcium 40 MG TAB PO SCH (19:39)
[2020-10-03] MEDS: Ketorolac Tromethamine 30 MG/ML VIAL IVP SCH ×4 (05:15→23:42)
[2020-10-03 05:45] LABS: Hemoglobin 10.5 g/dL (12.0-16.0); Mean Corpuscular HGB CONC 33.7 g/dL (32.0-36.0); Mean Corpuscular Hemoglobin 31.1 pg (27.0-31.0); Mean Corpuscular Volume 92.1 fL (78.0-98.0); Mean Platelet Volume 8.2 fL (7.4-10.4); Platelet Count 153 thou/uL (130-400); RBC Distribution Width 11.9 % (11.5-14.5); Red Blood Cell (RBC) Count 3.39 mill/uL (4.20-5.40); White Blood Cell (WBC) Count 7.7 thou/uL (4.8-10.8)
[2020-10-03] MEDS: Ferrous Gluconate 324 MG TAB PO SCH ×2 (08:56→20:14)
[2020-10-03] MEDS: Senokot S 8.6-50 MG TAB PO SCH ×2 (08:57→20:15)
[2020-10-03] MEDS: Multivitamin W/ Minerals 1 TAB PO SCH (08:57)
[2020-10-03] MEDS: metFORMIN 500 MG TAB PO SCH ×2 (08:57→20:14)
[2020-10-03] MEDS: Aspirin 81 mg Enteric Coated Tablet PO SCH ×2 (08:57→20:14)
[2020-10-03] MEDS: Empagliflozin 10 MG TAB PO SCH ×2 (08:58→20:15)
[2020-10-03] MEDS: Cholecalciferol 1,000 UNITS (25 MCG) TAB PO SCH (08:58)
[2020-10-03] MEDS: HYDROcodone/Acetaminophen 10/325 mg Tablet PO PRN (09:15)
[2020-10-03] MEDS: Sodium Chloride 0.9% 1,000 ML IV SCH ×2 (16:04→23:40)
[2020-10-03] MEDS: Atorvastatin Calcium 40 MG TAB PO SCH (20:14)
[2020-10-04] MEDS: Ketorolac Tromethamine 30 MG/ML VIAL IVP SCH (05:43)
[2020-10-04 06:04] LABS: Hemoglobin 9.5 g/dL (12.0-16.0); Mean Corpuscular HGB CONC 32.3 g/dL (32.0-36.0); Mean Corpuscular Hemoglobin 29.9 pg (27.0-31.0); Mean Corpuscular Volume 92.6 fL (78.0-98.0); Mean Platelet Volume 8.1 fL (7.4-10.4); Platelet Count 138 thou/uL (130-400); RBC Distribution Width 11.8 % (11.5-14.5); Red Blood Cell (RBC) Count 3.16 mill/uL (4.20-5.40); White Blood Cell (WBC) Count 7.6 thou/uL (4.8-10.8)
[2020-10-04] MEDS: Multivitamin W/ Minerals 1 TAB PO SCH (08:51)
[2020-10-04] MEDS: Aspirin 81 mg Enteric Coated Tablet PO SCH (08:51)
[2020-10-04] MEDS: Ferrous Gluconate 324 MG TAB PO SCH (08:51)
[2020-10-04] MEDS: Senokot S 8.6-50 MG TAB PO SCH (08:51)
[2020-10-04] MEDS: Cholecalciferol 1,000 UNITS (25 MCG) TAB PO SCH (08:52)
[2020-10-04] MEDS: Empagliflozin 10 MG TAB PO SCH (08:52)
[2020-10-04] MEDS: metFORMIN 500 MG TAB PO SCH (08:52)
[2020-10-04] MEDS: HYDROcodone/Acetaminophen 10/325 mg Tablet PO PRN (11:16)
[2020-10-04] MEDS: Sodium Chloride 0.9% 1,000 ML IV SCH (12:06)
[2020-10-04 16:11] VITALS: BP 151/52; TEMP 98.1
== END 2020-10-04 16:18 | disposition home or self-care (01) | DRG 470 ==
LOC: SJJU 10-02 05:57 → SURG B 10-02 09:53
PROVIDERS: ADMIT Orthopaedic Surgery; ATTEND Orthopaedic Surgery
PROC: 0SRC0J9 Replacement of Right Knee Joint with Synthetic Substitute, Cemented, Open Approach (ICD-10-PCS; principal; 2020-10-02)
DX: M17.11 Unilateral primary osteoarthritis, right knee (principal); Z96.652 Presence of left artificial knee joint; J45.909 Unspecified asthma, uncomplicated; E11.9 Type 2 diabetes mellitus without complications; M81.0 Age-related osteoporosis without current pathological fracture; I10 Essential (primary) hypertension; E78.5 Hyperlipidemia, unspecified; Z20.822 Contact with and (suspected) exposure to COVID-19; Z86.718 Personal history of other venous thrombosis and embolism; Z90.710 Acquired absence of both cervix and uterus; Z87.891 Personal history of nicotine dependence; Z79.01 Long term (current) use of anticoagulants; Z86.711 Personal history of pulmonary embolism
CPT/HCPCS: 36415; 36416; 80048; 85025; 85027; C1713; C1776; J0690; J1815; J1885; J2001; J2250; J2370; J2405; J2704; J2795; J3010; J3370; J3490

== ENCOUNTER 2020-09-27 13:17 | Outpatient (CLI) | payer MEDICARE ==
[2020-09-27 14:34] LABS: Bilirubin Neg (Negative); Blood, Urine Negative (Negative); Clarity Clear (Clear); Glucose, Urine (Dipstick) >=1000 mg/dL (Negative); Ketone, Urine Negative (Negative); Leukocyte Negative (Negative); Nitrite Positive (Negative); Protein, Urine (Dipstick) 15 mg/dl (Neg-Trace); Specific Gravity, Urine 1.005 (1.002-1.036); Urobilinogen Normal mg/dL (Less than 2)
[2020-09-27 14:38] LABS: #Basophils 0.1 10x3/uL (0.0-0.2); #Eosinphils 0.2 10x3/uL (0.0-0.5); #Monocytes 0.5 10x3/uL (0.0-1.1); %Basophils 1.1 % (0.0-2.0); %Eosinophils 2.9 % (0.0-6.0); %Lymphocytes 39.1 % (18.0-47.0); %Monocytes 8.3 % (0.0-10.0); %Neutrophils 48.4 % (40.0-75.0); Hemoglobin 12.6 g/dL (12.0-15.5); Mean Corpuscular HGB CONC 30.8 g/dL (32.0-36.0); Mean Corpuscular Hemoglobin 29.3 pg (27.0-33.0); Mean Corpuscular Volume 95.1 fl (81.6-98.3); Mean Platelet Volume 11.2 fl (7.4-10.4); Platelet Count 162 10x3/uL (150-450); RBC Distribution Width 13.2 % (11.5-14.5); White Blood Cell (WBC) Count 6.2 10x3/uL (3.5-10.5)
[2020-09-27 14:43] LABS: Anion Gap 14 mmol/L (10-20); BUN (Urea Nitrogen) 21 mg/dL (9.8-20.1); Calc. Creatinine Clearance 0 mL/min (70-130); Calcium 9.4 mg/dL (7.8-10.44); Carbon Dioxide 28 mmol/L (23-31); Chloride 104 mmol/L (98-107); Glucose 70 mg/dL (83-110); Potassium 4.8 mmol/L (3.5-5.1); Sodium 141 mmol/L (136-145)
[2020-09-27 14:47] LABS: Bacteria/HPF None Seen HPF (None Seen); RBC/HPF 0-3 HPF (0-3); Squamous Epithelial 0-3 HPF (0-3); WBC/HPF 0-3 HPF (0-3)
[2020-09-27 14:57] LABS: INR-International Normal Ratio 0.9; PTT 22.5 sec (22.0-33.0); Prothrombin Time 9.8 sec (9.5-12.1)
[2020-09-28 01:48] LABS: SARS-CoV-2 PCR by NAA Not Detected (NotDetected)
== END 2020-09-27 13:18 | disposition home or self-care (01) ==
LOC: LABBT 13:17
PROVIDERS: ATTEND Orthopaedic Surgery
DX: Z01.812 Encounter for preprocedural laboratory examination (principal); Z20.822 Contact with and (suspected) exposure to COVID-19; M17.11 Unilateral primary osteoarthritis, right knee
CPT/HCPCS: 80048; 81001; 85025; 85610; 85730; 87081; 93005; U0003; U0005; 87635; 93010